=== PATIENT | female | born 1955 | race Caucasian/White ===

== ENCOUNTER 2016-05-16 07:10 | Emergency (ER) | payer OTHER, SELFPAY ==
[2016-05-16] MEDS ORDERED: Sodium Chloride 0.9% 100 ML BAG ONE (07:37)
[2016-05-16] MEDS ORDERED: Sodium Chloride 0.9% 1,000 ML BAG ONE (07:37)
[2016-05-16] MEDS ORDERED: Ketorolac Tromethamine 30 MG/ML VIAL ONE (07:43)
[2016-05-16] MEDS ORDERED: Ondansetron HCl/PF 4 MG/2 ML Vial ONE (07:43)
--- NOTE | 2016-05-16 07:53 | RAD ---
CHEST 1 VIEW: HISTORY: Chest and abdomen pain. COMPARISON: 05/16/15. FINDINGS: Parenchymal opacity at the right lateral lung base has progressed with slight rightward shift of the mediastinum. Cardiac silhouette is otherwise within normal limits. Pulmonary vasculature is upper limits of normal. IMPRESSION: Worsening atelectasis at the right lung base. Cause is not evident. Please consider CT chest for b quique characterization. POS: DEEPA
[2016-05-16 08:03] LABS: ALT (SGPT) 13 U/L (0-55); AST (SGOT) 13 U/L (5-34); Albumin 4.1 g/dL (3.5-5.0); Alkaline Phosphatase 119 U/L (40-150); Amylase 36 U/L (25-125); Anion Gap 19 mmol/L (10-20); BUN (Urea Nitrogen) 11 mg/dL (9.8-20.1); Bilirubin, Total 0.6 mg/dL (0.2-1.2); Calc. Creatinine Clearance 0 mL/min (70-130); Calcium 9.6 mg/dL (7.8-10.44); Carbon Dioxide 21 mmol/L (22-29); Chloride 102 mmol/L (98-107); Estimated GFR-MDRD 74; Globulin 3.2 g/dL (2.4-3.5); Glucose 108 mg/dL (70-105); Lipase 12 U/L (8-78); Potassium 3.8 mmol/L (3.5-5.1); Protein, Total 7.3 g/dL (6.0-8.3); Sodium 138 mmol/L (136-145)
[2016-05-16 08:08] LABS: Band 5 % (5-11); Hemoglobin 12.8 g/dL (12.0-16.0); Lymphocytes 12 % (21-51); MDiff Complete? YES; Manual Diff?? YES; Mean Corpuscular Hemoglobin 27.4 pg (27.0-31.0); Mean Platelet Volume 7.9 fL (7.4-10.4); Monocytes 6 % (0-10); Neutrophil 77 % (42-75); Platelet Count 506 thou/uL (130-400); RBC Distribution Width 13.9 % (11.5-14.5); Red Blood Cell (RBC) Count 4.67 mill/uL (4.20-5.40); White Blood Cell (WBC) Count 17.6 thou/uL (4.8-10.8)
[2016-05-16 08:09] LABS: PLT Morphology Comment Appears Increased; RBC Morphology Normal
[2016-05-16 08:13] LABS: Blood, Urine Moderate (Negative); Clarity Clear (Clear); Glucose, Urine (Dipstick) Negative (Negative); Leukocyte Negative (Negative); Nitrite Negative (Negative); Protein, Urine (Dipstick) 30 mg/dL (Neg-Trace)
[2016-05-16 08:15] LABS: Bilirubin Small (Negative); Icto Negative (Negative); Specific Gravity, Urine 1.024 (1.002-1.036)
[2016-05-16 08:16] LABS: Bacteria/HPF Rare-Few HPF (None Seen); WBC/HPF 0-3 HPF (0-3)
--- NOTE | 2016-05-16 08:32 | ULT ---
RIGHT UPPER QUADRANT SONOGRAM: HISTORY: Right upper quadrant pain. FINDINGS: The patient is reportedly tender over the gallbladder fossa at the time of the exam with multiple sh adowing stones. The gallbladder is somewhat distended measuring up to 8.8 cm. There is no gallblad erickson wall thickening evident. Common duct is 0.3 cm diameter. Liver is unremarkable without focal m ass or intrahepatic biliary dilatation. No free fluid is apparent. IMPRESSION: Cholelithiasis. Distention of the gallbladder and positive sonographic Grider's sign are signs of a cute cholecystitis. Clinical correlation regarding other signs and symptoms of acute cholecystitis of acute cholecystitis is required. POS: DEEPA
[2016-05-16] MEDS ORDERED: Piperacillin/Tazobactam 4.5 GM VIAL ONE (08:44)
--- NOTE | 2016-05-16 08:59 | ERRECORD ---
[facility] EMERGENCY RECORD HPI ABDOMINAL PAIN (07:41 LLDO) CHIEF COMPLAINTS: Patient presents for evaluation of abdominal pain, Patient presents for evaluation of was dx'd as having gall stones about a onth ago. was doing better until 2 days ago and started having severe RUQ pain with rad into right scapula area and now also intyo right upper flank. n/v/d. fever to 101 or more. pain slowly getting worse. HISTORIAN: History provided by patient, History provided by patient's spouse. LOCATION FEMALE: Symptoms are localized. QUALITY: Pain is dull in nature, described as aching, described as BECOMES SHARP WITH MOVEMENT OR PALPATION. SEVERITY: Maximum severity of symptoms severe, Currently symptoms are severe. TIME COURSE: Gradual onset of symptoms, Symptoms are constant, Symptoms are worsening. ASSOCIATED WITH FEMALE: Associated with fever, Associated with flank pain, Associated with loss of appetite, Associated with nausea, Associated with vomiting. MODIFYING FACTORS FEMALE: tubes tied. RELIEVED BY: Patient's condition relieved by nothing. EXACERBATED BY: Patient's condition exacerbated by deep breath, Patient's condition exacerbated by movement, Patient's condition exacerbated by walking. RISK FACTORS FEMALE: No ectopic risk factors present, Abdominal aortic aneurysm risk factors, include age over 40 years, Coronary artery disease risk factors, include smoking. ROS CONSTITUTIONAL: Historian reports fatigue, reports fever, reports weight loss. (07:47 LLDO) EYES: Negative eye review of systems, Historian denies eye pain, denies eye redness, denies eye discharge. (07:53 LLDO) ENT: SEE HPI...DRY MOUTH. (07:47 LLDO) CARDIOVASCULAR: Negative cardiovascular review of systems, Historian denies chest pain, no radiation, Historian denies diaphoresis, denies syncope. (07:53 LLDO) RESPIRATORY: Negative respiratory review of systems, Historian denies cough, denies shortness of breath, denies sputum. (07:53 LLDO) GI: Historian reports abdominal pain, reports anorexia, reports appetite changes, reports diarrhea, denies hematemesis, denies hematochezia, denies jaundice, denies melena, reports nausea, reports stool changes, reports vomiting. (07:47 LLDO) GENITOURINARY FEMALE: Negative genitourinary review of systems, Historian denies dysuria, denies frequency, denies urgency. (07:53 LLDO) MUSCULOSKELETAL: Historian reports back pain, denies deformity, denies fall, denies injury, reports myalgias. (07:47 LLDO) &a-1R&a+25V*p+0X*[id number]*c202B*c15G*c2P*p-0X&a-25V&a+1R Name: Kristie Moreno : 1955 F60 MedRec: [id number] AcctNum: [id number] Prepared: Rian May 16, 2016 10:17 by Interface Page 1 of 4 pMD [facility] EMERGENCY RECORD SKIN: Negative skin review of systems, Historian denies cellulitis, denies rash, denies skin changes, denies skin lesions. (07:53 LLDO) NEUROLOGIC: Negative neurologic review of systems, Historian denies confusion, denies dizziness, denies focal weakness, denies mental status changes. (07:53 LLDO) HEMO/LYMPHATIC: Normal hematologic/lymphatic system review, Historian denies abnormal blood clotting, denies gum bleeding, denies petechiae. (07:53 LLDO) ALLERGIC/IMMUNOLOGIC: Normal allergy/immunologic system review, Historian denies eczema, denies environmental allergies, denies food allergies. (07:53 LLDO) PSYCHIATRIC: Negative psychiatric review of systems, Historian denies alcohol abuse, denies anxiety, denies depression, denies drug abuse, denies hallucinations. (07:53 LLDO) NOTES: All systems reviewed, negative except as described above. (07:47 LLDO) PAST MEDICAL HISTORY MEDICAL HISTORY: reflux, asthma, emphysema. (08:06 SCHI) FEMALE SURGICAL HISTORY: left wrist. (08:06 SCHI) PSYCHIATRIC HISTORY: No previous psychiatric history. (08:06 SCHI) SOCIAL HISTORY: Lives at home, with family, Patient denies alcohol use, Patient denies drug use, Patient is a former tobacco user, smoked cigarettes, Patient quit smoking less than 10 years ago. (08:06 SCHI) FAMILY HISTORY: Family istory is not significant. (08:06 SCHI) NOTES: Nursing records reviewed, Agree with nursing records, Old chart reviewed, Medication list reviewed. (07:52 LLDO) KNOWN ALLERGIES No Known Allergies CURRENT MEDICATIONS atorvastatin: TABLET : Strength - 20 mg : ORAL Patient Dose: once a day. (08:08 SCHI) sertraline: TABLET : Strength - 100 mg : ORAL Patient Dose: once a day. (08:09 SCHI) Advair Diskus: BLISTER, WITH INHALATION DEVICE : Strength - 500 mcg-50 mcg/Dose : INHALATION Patient Dose: once a day. (08:09 SCHI) Ventolin HFA: HFA AEROSOL WITH ADAPTER (GRAM) : Strength - 90 mcg : INHALATION Patient Dose: every 4 hours prn. (08:10 SCHI) &a-1R&a+25V*p+0X*[id number]*c202B*c15G*c2P*p-0X&a-25V&a+1R Name: Kristie Moreno : 1955 F60 MedRec: [id number] AcctNum: [id number] Prepared: [facility] May 16, 2016 10:17 by Interface Page 2 of 4 pMD [facility] EMERGENCY RECORD VITAL SIGNS VITAL SIGNS: BP: 126/69, Pulse: 106, Resp: 22, Temp: 100.5 (Tympanic), Pain: 10, O2 sat: 93 on Room Air, Time: 05/16/2016 07:20. (07:20 SCHI) BP: 96/61, Pulse: 79, Resp: 20, Pain: 2, O2 sat: 90 on Room Air, Time: 05/16/2016 08:45. (08:45 SCHI) BP: 118/64, Pulse: 96, Resp: 20, Temp: 99.7 (Tympanic), Pain: 2, O2 sat: 95 on 2L Oxygen, Time: 05/16/2016 09:07. (09:07 SCHI) PHYSICAL EXAM CONSTITUTIONAL: Vital Signs Reviewed, Patient febrile, temperature of 100.5, Pulse, tachycardic, 106, Blood pressure normal, Respiratory rate normal, Patient appears non toxic, Patient appears, in moderate pain distress, SEVERE WITH PALPATION OR MOVEMENT, Patient alert and oriented to person, place and time, Nursing notes reviewed. (07:50 LLDO) HEAD: Head exam normal, Head exam included findings of head atraumatic, normocephalic. (07:53 LLDO) EYES: Eye exam normal, Eye exam included findings of eyelids normal to inspection, Pupils equally round and reactive to light, Extraocular muscles intact. (07:53 LLDO) ENT: Ear exam normal, Nose exam normal, Pharynx exam normal, Uvula exam normal, Tonsil exam normal, Mouth exam included findings of, mucous membranes dry, Sinus exam included findings of frontal sinuses normal, maxillary sinuses normal. (07:50 LLDO) NECK: Neck exam included findings of normal range of motion, Trachea midline, Thyroid normal, no meningeal signs, Cervical adenopathy. (07:50 LLDO) RESPIRATORY CHEST: Respiratory and chest exam normal, Respiratory exam included findings of, Chest exam included findings of chest movement symmetrical, Chest expansion equal. (07:53 LLDO) CARDIOVASCULAR: Cardiovascular assessment normal, Cardiovascular exam included findings of heart rate regular rate and rhythm, Heart sounds normal. (07:53 LLDO) ABDOMEN FEMALE: Abdominal exam included findings of abdomen tender, to the right upper quadrant, severe intensity, Bowel sounds, hyperactive, Spleen normal, no distension, no mass, no pulsatile masses, Peritoneal signs present, guarding present, RUQ with pos dixon's sign. (07:50 LLDO) BACK: Back exam included findings of normal inspection, Range of motion, limited by pain, Tenderness, paraspinal to the right upper back, paraspinal to the right mid back. (07:50 LLDO) UPPER EXTREMITY: Upper extremity exam normal, Upper extremity exam included findings of inspection normal, Range of motion normal. (07:53 LLDO) &a-1R&a+25V*p+0X*[id number]*c202B*c15G*c2P*p-0X&a-25V&a+1R Name: Kristie Moreno Mary : 1955 F60 MedRec: [id number] AcctNum: [id number] Prepared: [facility] May 16, 2016 10:17 by Interface Page 3 of 4 pMD [facility] EMERGENCY RECORD LOWER EXTREMITY: Lower extremity exam normal, Lower extremity exam included findings of inspection normal, Range of motion normal. (07:53 LLDO) NEURO: Neuro exam normal, Neuro exam findings include patient oriented to person, place and time, Speech normal, Roann coma scale 15. (07:53 LLDO) SKIN: Skin exam normal, Skin exam included findings of skin warm, dry, and normal in color, no rash. (07:53 LLDO) PSYCHIATRIC: Psychiatric exam normal, Psychiatric exam included findings of patient oriented to person place and time, Normal affect. (07:53 LLDO) MEDICATION ADMINISTRATION SUMMARY Drug Name: Flagyl RTU intravenous piggyback, Dose Ordered: 500 mg, Route: IV Piggy Back, Status: Given, Time: 09:50 05/16/2016, Drug Name: Zosyn, Dose Ordered: 4.5 gran(s), Route: IV Piggy Back, Status: Given, Time: 08:50 05/16/2016, Drug Name: *sodium chloride 0.9 % intravenous, Dose Ordered: 1 L, Route: IV Fluid Infusion, Status: Given, Time: 08:33 05/16/2016, Drug Name: Duramorph (PF), Dose Ordered: 4 mg, Route: IV Push, Status: Given, Time: 08:33 05/16/2016, Drug Name: Zofran intravenous, Dose Ordered: 8 mg, Route: IV Push, Status: Given, Time: 07:53 05/16/2016, Drug Name: Toradol injection, Dose Ordered: 30 mg, Route: IV Push, Status: Given, Time: 07:53 05/16/2016, *Additional information available in notes, Detailed record available in Medication Service section. DOCTOR NOTES (08:53 LLDO) TEXT: accepted by dr. Mcpherson for [facility]. PROBLEM LIST No recorded problems DIAGNOSIS (08:54 LLDO) FINAL: PRIMARY: Gallstone with acute cholecystitis. PRESCRIPTION No recorded prescriptions DISPOSITION PATIENT: Disposition Type: Discharge, Disposition: *Discharge Home. (08:54 LLDO) Disposition Type: Transfer, Disposition: Transfer to [facility]. (08:57 SCHI) Patient left the department. (10:12 SCHI) Negron: LLDO=MD Caesar, Timbo SCHI=ALDA Soto, Brian &a-1R&a+25V*p+0X*[id number]*c202B*c15G*c2P*p-0X&a-25V&a+1R Name: Kristie Moreno Mary : 1955 F60 MedRec: [id number] AcctNum: [id number] Prepared: [facility] May 16, 2016 10:17 by Interface Page 4 of 4 pMD MTDD
--- NOTE | 2016-05-16 09:04 | PICIS ---
[facility] EMERGENCY RECORD TRIAGE (FriMay 16, 2016 07:21 SCHI) TRIAGE NOTES: RT UPPER QUAD PAIN SINCE . (FriMay 16, 2016 07:21 SCHI) PATIENT: NAME: Kristie Moreno, AGE: 60, GENDER: female, : Fri1955, TIME OF GREET: FriMay 16, 2016 07:10, PREFERRED LANGUAGE: American, ETHNICITY: Not or , FALL RISK: NO, ECODE BILLING MAP: [facility], SSN: [id number], Zip Code: [address], KG WEIGHT: 74.39, PHONE: , , , PERSON ID: [id number], PCP: DR VOSS. (FriMay 16, 2016 07:21 SCHI) COMPLAINT: RIGHT FLANK PAIN. (FriMay 16, 2016 07:21 SCHI) ADMISSION: URGENCY: 3 Urgent, ADMISSION SOURCE: Home, TRANSPORT: Walk-in, BED: ED -05. (FriMay 16, 2016 07:21 SCHI) ASSESSMENT: Assessment: ALERT AND ORIENTED X 4, SKIN WARM AND DRY RESP EVEN AND UNLABORED,, Symptoms began FRIDAY AFTERNOON. (08:06 SCHI) PAIN: Patient complains of pain described as, on a scale 0-10 patient rates pain as 10, Location RT UPPER SIDE, Pain is constant. (08:06 SCHI) TRIAGE SCREENING: Patient denies suicidal ideation, Patient denies presence of domestic violence. (08:06 SCHI) PROVIDERS: TRIAGE NURSE: Brian Soto RN. (FriMay 16, 2016 07:21 SCHI) VITAL SIGNS: BP 126/69, Pulse 106, Resp 22, Temp 100.5, (Tympanic), Pain 10, O2 Sat 93, on Room Air, Time 05/16/2016 07:20. (07:20 SCHI) PREVIOUS VISIT ALLERGIES: No Known Allergies. (FriMay 16, 2016 07:21 SCHI) No Known Allergies. (08:06 SCHI) KNOWN ALLERGIES No Known Allergies CURRENT MEDICATIONS atorvastatin: TABLET : Strength - 20 mg : ORAL Patient Dose: once a day. (08:08 SCHI) sertraline: TABLET : Strength - 100 mg : ORAL Patient Dose: once a day. (08:09 SCHI) Advair Diskus: BLISTER, WITH INHALATION DEVICE : Strength - 500 mcg-50 mcg/Dose : INHALATION Patient Dose: once a day. (08:09 SCHI) Ventolin HFA: HFA AEROSOL WITH ADAPTER (GRAM) : Strength - 90 mcg : INHALATION Patient Dose: every 4 hours prn. (08:10 SCHI) VITAL SIGNS VITAL SIGNS: BP: 126/69, Pulse: 106, Resp: 22, Temp: 100.5 &a-1R&a+25V*p+0X*[id number]*c202B*c15G*c2P*p-0X&a-25V&a+1R Name: Kristie Moreno : 1955 F60 MedRec: [id number] AcctNum: [id number] Prepared: [facility] May 16, 2016 10:23 by Interface Page 1 of 12 pMD [facility] EMERGENCY RECORD (Tympanic), Pain: 10, O2 sat: 93 on Room Air, Time: 05/16/2016 07:20. (07:20 SCHI) BP: 96/61, Pulse: 79, Resp: 20, Pain: 2, O2 sat: 90 on Room Air, Time: 05/16/2016 08:45. (08:45 SCHI) BP: 118/64, Pulse: 96, Resp: 20, Temp: 99.7 (Tympanic), Pain: 2, O2 sat: 95 on 2L Oxygen, Time: 05/16/2016 09:07. (09:07 SCHI) NURSING ASSESSMENT: ABDOMEN CONSTITUTIONAL: Patient arrives ambulatory, Gait steady, History obtained from patient, Patient appears, uncomfortable, Patient cooperative, Patient alert, Oriented to person, place and time, Skin warm, Skin dry, Skin, pale in color, Mucous membranes pink, Mucous membranes moist, Patient is well-groomed, Patient complains of right side pain since friday, pt reports that she has been told that she has gallstones, pt has nausea, some vomiting and some diarrhea. (07:30 SCHI) PAIN: cramping pain, to the right upper quadrant, on a scale 0-10 patient rates pain as 2. (09:15 SCHI) ABDOMEN: Abdomen assessment findings include abdomen symmetrical, Abdomen soft. (07:30 SCHI) GENITOURINARY FEMALE: Notes: no symptoms stated. (07:30 SCHI) NOTES: Patient tolerated procedure well. (07:30 SCHI) SAFETY: Side rails up, Cart/Stretcher in lowest position, Family at bedside, Hospital ID band on. (07:30 SCHI) NURSING PLAN OF CARE: Pain:, Patient is able to participate in development and implementation of nursing plan of care for pain. (07:30 SCHI) NURSING PROCEDURE: IV (07:50 SCHI) PATIENT IDENITIFIER: Patient actively involved in identification process, Patient's identity verified by patient stating name, Patient's identity verified by patient stating date, Patient's identity verified by hospital ID bracelet. IV SITE 1: IV therapy indicated for hydration, IV therapy indicated for medication administration, IV established, to the left wrist, using a 20 gauge catheter, in one attempt, IV site prepped with chloraprep, Saline lock established, Flushed with normal saline (mls): 10, Labs drawn at time of placement, labeled in the presence of the patient and sent to lab. NURSING PROCEDURE: OXYGEN THERAPY (09:11 SCHI) OXYGEN THERAPY: Oxygen therapy indicated for desaturation, Oxygen saturation 90%, by adult/pediatric oxisensor, single pulse oximetry reading, 2L oxygen given, via nasal cannula applied. NURSING PROCEDURE: TRANSPORT TO TESTS PATIENT IDENTIFIER: Patient actively involved in identification process, Patient's identity verified by patient stating name, &a-1R&a+25V*p+0X*[id number]*c202B*c15G*c2P*p-0X&a-25V&a+1R Name: Kristie Moreno : 1955 F60 MedRec: [id number] AcctNum: [id number] Prepared: Rain May 16, 2016 10:23 by Interface Page 2 of 12 pMD [facility] EMERGENCY RECORD Patient's identity verified by patient stating date, Patient's identity verified by hospital ID bracelet. (07:53 SCHI) TRANSPORT TO TESTS: Transport indicated to facilitate diagnosis, Patient transported to x-ray, via wheelchair, Accompanied by x-ray field support technician. (07:53 SCHI) FOLLOW-UP: After procedure, patient returned to emergency department. (08:03 SCHI) NOTES: Patient tolerated procedure well. (07:53 SCHI) SAFETY: Side rails up, Cart/Stretcher in lowest position, Family at bedside, Call light within reach, Hospital ID band on. (07:53 SCHI) NURSING PROCEDURE: URINE COLLECTION (07:45 SCHI) PATIENT IDENTIFIER: Patient actively involved in identification process, Patient's identity verified by patient stating name, Patient's identity verified by patient stating date, Patient's identity verified by hospital ID bracelet. URINE COLLECTION FEMALE: Urine collected by mid-stream clean catch, urine yellow in color, Specimen labeled in the presence of the patient and sent to lab. SAFETY: Side rails up, Cart/Stretcher in lowest position, Family at bedside, Hospital ID band on. ORDER DETAILS Order Name: Amylase, Status: Active, Time: 07:28 05/16/2016, User: WESTON, - Ordered for: MD Maynard Lloyd, - Entered by: MD Maynard Lloyd - Rain May 16, 2016 07:28, - Quantity: 1, Order Name: CBC with Differential, Status: Active, Time: 07:26 05/16/2016, User: LL, - Ordered for: MD Maynard Lloyd, - Entered by: MD Maynard Lloyd - Rain May 16, 2016 07:26, - Quantity: 1, Order Name: Comprehensive Metabolic Panel, Status: Active, Time: 07:26 05/16/2016, User: LL, - Ordered for: MD Maynard Lloyd, - Entered by: MD Maynard Lloyd - Rain May 16, 2016 07:26, - Quantity: 1, Order Name: Culture, Blood, Status: Active, Time: 08:29 05/16/2016, User: WESTON, - Ordered for: MD Maynard Lloyd, - Entered by: MD Maynard Lloyd - Rain May 16, 2016 08:29, - Quantity: 1, Order Name: Culture, Urine, Status: Active, Time: 07:26 05/16/2016, User: LL, - Ordered for: MD Maynard Lloyd, - Entered by: MD Maynard Lloyd - [facility] May 16, 2016 07:26, - Quantity: 1, &a-1R&a+25V*p+0X*[id number]*c202B*c15G*c2P*p-0X&a-25V&a+1R Name: Kristie Moreno : 1955 F60 MedRec: [id number] AcctNum: [id number] Prepared: FriMay 16, 2016 10:23 by Interface Page 3 of 12 pMD [facility] EMERGENCY RECORD Order Name: Lipase, Status: Active, Time: 07:28 05/16/2016, User: WESTON, - Ordered for: MD Maynard Lloyd, - Entered by: MD Maynard Lloyd - [facility] May 16, 2016 07:28, - Quantity: 1, Order Name: SALINE LOCK, Status: Done, Time: 08:04 05/16/2016, User: SCHI, - Ordered for: MD Maynard Lloyd, - Entered by: MD Maynard Lloyd - [facility] May 16, 2016 07:28, - Quantity: 1, Order Name: Urinalysis with Microscopic, Status: Active, Time: 07:26 05/16/2016, User: LL, - Ordered for: MD Maynard Lloyd, - Entered by: MD Maynard Lloyd - Rain May 16, 2016 07:26, - Quantity: 1, Order Name: US Gallbladder RUQ, Status: Active, Time: 07:36 05/16/2016, User: LL, - Ordered for: MD Maynard Lloyd, - Entered by: MD Maynard Lloyd - [facility] May 16, 2016 07:36, - Quantity: 1, Order Name: XR Chest 1 View Portable, Status: Active, Time: 07:28 05/16/2016, User: LL, - Ordered for: MD Maynard Lloyd, - Entered by: MD Maynard Lloyd - Rain May 16, 2016 07:28, - Quantity: 1. MEDICATION ADMINISTRATION SUMMARY Drug Name: Flagyl RTU intravenous piggyback, Dose Ordered: 500 mg, Route: IV Piggy Back, Status: Given, Time: 09:50 05/16/2016, Drug Name: Zosyn, Dose Ordered: 4.5 gran(s), Route: IV Piggy Back, Status: Given, Time: 08:50 05/16/2016, Drug Name: *sodium chloride 0.9 % intravenous, Dose Ordered: 1 L, Route: IV Fluid Infusion, Status: Given, Time: 08:33 05/16/2016, Drug Name: Duramorph (PF), Dose Ordered: 4 mg, Route: IV Push, Status: Given, Time: 08:33 05/16/2016, Drug Name: Zofran intravenous, Dose Ordered: 8 mg, Route: IV Push, Status: Given, Time: 07:53 05/16/2016, Drug Name: Toradol injection, Dose Ordered: 30 mg, Route: IV Push, Status: Given, Time: 07:53 05/16/2016, *Additional information available in notes, Detailed record available in Medication Service section. MEDICATION SERVICE Duramorph (PF): Order: Duramorph (PF) (morphine sulfate/preservative free) - Dose: 4 mg : IV Push Schedule: Now Ordered by: Timbo Maynard MD Entered by: Timbo Maynard MD [facility] May 16, 2016 07:34 , Acknowledged by: Brian Soto RN [facility] May 16, 2016 08:07 Documented as given by: Brian Soto RN [facility] May 16, 2016 08:33 &a-1R&a+25V*p+0X*e4482P*c202B*c15G*c2P*p-0X&a-25V&a+1R Name: Kristie Moreno : 1955 F60 MedRec: [id number] AcctNum: [id number] Prepared: Rain May 16, 2016 10:23 by Interface Page 4 of 12 pMD [facility] EMERGENCY RECORD Patient, Medication, Dose, Route and Time verified prior to administration. IV SITE #1 IVP, initial medication, Catheter placement confirmed via flush prior to administration, IV site without signs or symptoms of infiltration during medication administration, No swelling during administration, No drainage during administration, IV flushed after administration, Correct patient, time, route, dose and medication confirmed prior to administration, Patient advised of actions and side-effects prior to administration, Allergies confirmed and medications reviewed prior to administration. Flagyl RTU intravenous piggyback: Order: Flagyl RTU intravenous piggyback (metronidazole/sodium chloride) - Dose: 500 mg : IV Piggy Back Schedule: Now Ordered by: Timbo Maynard MD Entered by: Timbo Maynard MD [facility] May 16, 2016 08:30 , Acknowledged by: Brian Soto RN [facility] May 16, 2016 08:34 Documented as given by: Brian Soto RN [facility] May 16, 2016 09:50 Patient, Medication, Dose, Route and Time verified prior to administration. IV SITE #1 IVPB or drip, subsequent infusion, via primary tubing, Catheter placement confirmed via flush prior to administration, IV site without signs or symptoms of infiltration during medication administration, No swelling during administration, No drainage during administration, IV flushed after administration, Correct patient, time, route, dose and medication confirmed prior to administration, Patient advised of actions and side-effects prior to administration, Allergies confirmed and medications reviewed prior to administration. sodium chloride 0.9 % intravenous: Order: sodium chloride 0.9 % intravenous (0.9 % sodium chloride) - Dose: 1 L : IV Fluid Infusion Notes: (Bolus) after bolus, run NS at 150 ml/h Ordered by: Timbo Maynard MD Entered by: Timbo Maynard MD [facility] May 16, 2016 07:35 , Acknowledged by: Brian Soto RN [facility] May 16, 2016 08:07 Documented as given by: Brian Soto RN [facility] May 16, 2016 08:33 Patient, Medication, Dose, Route and Time verified prior to administration. IV SITE #1 IV fluids established for hydration, IV SITE #1 into left wrist, IV SITE #1 1st bag hung, amount 1 Liter hung, IV SITE #1 bolus of 1000 ml established, IV SITE #1 Rate of bolus, wide open, via primary tubing, Catheter placement confirmed via flush prior to administration, IV site without signs or symptoms of infiltration during medication administration, No swelling during administration, No drainage during administration, IV flushed after administration, Correct patient, time, route, dose and medication confirmed prior to administration, Patient advised of actions and side-effects prior to administration, Allergies confirmed and medications reviewed prior to administration. Toradol injection: Order: Toradol injection (ketorolac &a-1R&a+25V*p+0X*c1239Y*c202B*c15G*c2P*p-0X&a-25V&a+1R Name: Kristie Moreno : 1955 F60 MedRec: [id number] AcctNum: [id number] Prepared: Rain May 16, 2016 10:23 by Interface Page 5 of 12 pMD [facility] EMERGENCY RECORD tromethamine) - Dose: 30 mg : IV Push Schedule: Now Ordered by: Timbo Maynard MD Entered by: Timbo Maynard MD [facility] May 16, 2016 07:34 Documented as given by: Brian Soto RN [facility] May 16, 2016 07:53 Patient, Medication, Dose, Route and Time verified prior to administration. IV SITE #1 IVP, subsequent different medication, Slowly, Catheter placement confirmed via flush prior to administration, IV site without signs or symptoms of infiltration during medication administration, No swelling during administration, No drainage during administration, IV flushed after administration, Correct patient, time, route, dose and medication confirmed prior to administration, Patient advised of actions and side-effects prior to administration, Allergies confirmed and medications reviewed prior to administration. Zofran intravenous: Order: Zofran intravenous (ondansetron HCl) - Dose: 8 mg : IV Push Schedule: Now Ordered by: Timbo Maynard MD Entered by: Timbo Maynard MD [facility] May 16, 2016 07:34 Documented as given by: Brian Soto RN [facility] May 16, 2016 07:53 Patient, Medication, Dose, Route and Time verified prior to administration. IV SITE #1 IVP, initial medication, Awake and alert- acceptable, Catheter placement confirmed via flush prior to administration, IV site without signs or symptoms of infiltration during medication administration, No swelling during administration, No drainage during administration, IV flushed after administration, Correct patient, time, route, dose and medication confirmed prior to administration, Patient advised of actions and side-effects prior to administration, Allergies confirmed and medications reviewed prior to administration. Zosyn: Order: Zosyn (piperacillin sodium/tazobactam sodium) - Dose: 4.5 gran(s) : IV Piggy Back Schedule: Now Ordered by: Timbo Maynard MD Entered by: Timbo Maynard MD [facility] May 16, 2016 08:30 , Acknowledged by: Brian Soto RN [facility] May 16, 2016 08:34 Documented as given by: Brian Soto RN [facility] May 16, 2016 08:50 Patient, Medication, Dose, Route and Time verified prior to administration. IV SITE #1 IVPB or drip, initial infusion, via primary tubing. HPI ABDOMINAL PAIN (07:41 LLDO) CHIEF COMPLAINTS: Patient presents for evaluation of abdominal pain, Patient presents for evaluation of was dx'd as having gall stones about a onth ago. was doing better until 2 days ago and started having severe RUQ pain with rad into right scapula area and now also intyo right upper flank. n/v/d. fever to 101 or more. pain slowly getting worse. HISTORIAN: History provided by patient, History provided by patient's spouse. &a-1R&a+25V*p+0X*v1444Q*c202B*c15G*c2P*p-0X&a-25V&a+1R Name: Kristie Moreno : 1955 F60 MedRec: [id number] AcctNum: [id number] Prepared: [facility] May 16, 2016 10:23 by Interface Page 6 of 12 pMD [facility] EMERGENCY RECORD LOCATION FEMALE: Symptoms are localized. QUALITY: Pain is dull in nature, described as aching, described as BECOMES SHARP WITH MOVEMENT OR PALPATION. SEVERITY: Maximum severity of symptoms severe, Currently symptoms are severe. TIME COURSE: Gradual onset of symptoms, Symptoms are constant, Symptoms are worsening. ASSOCIATED WITH FEMALE: Associated with fever, Associated with flank pain, Associated with loss of appetite, Associated with nausea, Associated with vomiting. MODIFYING FACTORS FEMALE: tubes tied. RELIEVED BY: Patient's condition relieved by nothing. EXACERBATED BY: Patient's condition exacerbated by deep breath, Patient's condition exacerbated by movement, Patient's condition exacerbated by walking. RISK FACTORS FEMALE: No ectopic risk factors present, Abdominal aortic aneurysm risk factors, include age over 40 years, Coronary artery disease risk factors, include smoking. ROS CONSTITUTIONAL: Historian reports fatigue, reports fever, reports weight loss. (07:47 LLDO) EYES: Negative eye review of systems, Historian denies eye pain, denies eye redness, denies eye discharge. (07:53 LLDO) ENT: SEE HPI...DRY MOUTH. (07:47 LLDO) CARDIOVASCULAR: Negative cardiovascular review of systems, Historian denies chest pain, no radiation, Historian denies diaphoresis, denies syncope. (07:53 LLDO) RESPIRATORY: Negative respiratory review of systems, Historian denies cough, denies shortness of breath, denies sputum. (07:53 LLDO) GI: Historian reports abdominal pain, reports anorexia, reports appetite changes, reports diarrhea, denies hematemesis, denies hematochezia, denies jaundice, denies melena, reports nausea, reports stool changes, reports vomiting. (07:47 LLDO) GENITOURINARY FEMALE: Negative genitourinary review of systems, Historian denies dysuria, denies frequency, denies urgency. (07:53 LLDO) MUSCULOSKELETAL: Historian reports back pain, denies deformity, denies fall, denies injury, reports myalgias. (07:47 LLDO) SKIN: Negative skin review of systems, Historian denies cellulitis, denies rash, denies skin changes, denies skin lesions. (07:53 LLDO) NEUROLOGIC: Negative neurologic review of systems, Historian denies confusion, denies dizziness, denies focal weakness, denies mental status changes. (07:53 LLDO) HEMO/LYMPHATIC: Normal hematologic/lymphatic system review, Historian denies abnormal blood clotting, denies gum bleeding, denies &a-1R&a+25V*p+0X*j3065U*c202B*c15G*c2P*p-0X&a-25V&a+1R Name: Kristie Moreno : 1955 F60 MedRec: [id number] AcctNum: [id number] Prepared: Rain May 16, 2016 10:23 by Interface Page 7 of 12 pMD [facility] EMERGENCY RECORD petechiae. (07:53 LLDO) ALLERGIC/IMMUNOLOGIC: Normal allergy/immunologic system review, Historian denies eczema, denies environmental allergies, denies food allergies. (07:53 LLDO) PSYCHIATRIC: Negative psychiatric review of systems, Historian denies alcohol abuse, denies anxiety, denies depression, denies drug abuse, denies hallucinations. (07:53 LLDO) NOTES: All systems reviewed, negative except as described above. (07:47 LLDO) PAST MEDICAL HISTORY MEDICAL HISTORY: reflux, asthma, emphysema. (08:06 SCHI) FEMALE SURGICAL HISTORY: left wrist. (08:06 SCHI) PSYCHIATRIC HISTORY: No previous psychiatric history. (08:06 SCHI) SOCIAL HISTORY: Lives at home, with family, Patient denies alcohol use, Patient denies drug use, Patient is a former tobacco user, smoked cigarettes, Patient quit smoking less than 10 years ago. (08:06 SCHI) FAMILY HISTORY: Family istory is not significant. (08:06 SCHI) NOTES: Nursing records reviewed, Agree with nursing records, Old chart reviewed, Medication list reviewed. (07:52 LLDO) PHYSICAL EXAM CONSTITUTIONAL: Vital Signs Reviewed, Patient febrile, temperature of 100.5, Pulse, tachycardic, 106, Blood pressure normal, Respiratory rate normal, Patient appears non toxic, Patient appears, in moderate pain distress, SEVERE WITH PALPATION OR MOVEMENT, Patient alert and oriented to person, place and time, Nursing notes reviewed. (07:50 LLDO) HEAD: Head exam normal, Head exam included findings of head atraumatic, normocephalic. (07:53 LLDO) EYES: Eye exam normal, Eye exam included findings of eyelids normal to inspection, Pupils equally round and reactive to light, Extraocular muscles intact. (07:53 LLDO) ENT: Ear exam normal, Nose exam normal, Pharynx exam normal, Uvula exam normal, Tonsil exam normal, Mouth exam included findings of, mucous membranes dry, Sinus exam included findings of frontal sinuses normal, maxillary sinuses normal. (07:50 LLDO) NECK: Neck exam included findings of normal range of motion, Trachea midline, Thyroid normal, no meningeal signs, Cervical adenopathy. (07:50 LLDO) RESPIRATORY CHEST: Respiratory and chest exam normal, Respiratory exam included findings of, Chest exam included findings of chest movement symmetrical, Chest expansion equal. (07:53 LLDO) CARDIOVASCULAR: Cardiovascular assessment normal, Cardiovascular &a-1R&a+25V*p+0X*c0139Z*c202B*c15G*c2P*p-0X&a-25V&a+1R Name: Kristie Moreno : 1955 F60 MedRec: [id number] AcctNum: [id number] Prepared: Rain May 16, 2016 10:23 by Interface Page 8 of 12 pMD [facility] EMERGENCY RECORD exam included findings of heart rate regular rate and rhythm, Heart sounds normal. (07:53 LLDO) ABDOMEN FEMALE: Abdominal exam included findings of abdomen tender, to the right upper quadrant, severe intensity, Bowel sounds, hyperactive, Spleen normal, no distension, no mass, no pulsatile masses, Peritoneal signs present, guarding present, RUQ with pos dixon's sign. (07:50 LLDO) BACK: Back exam included findings of normal inspection, Range of motion, limited by pain, Tenderness, paraspinal to the right upper back, paraspinal to the right mid back. (07:50 LLDO) UPPER EXTREMITY: Upper extremity exam normal, Upper extremity exam included findings of inspection normal, Range of motion normal. (07:53 LLDO) LOWER EXTREMITY: Lower extremity exam normal, Lower extremity exam included findings of inspection normal, Range of motion normal. (07:53 LLDO) NEURO: Neuro exam normal, Neuro exam findings include patient oriented to person, place and time, Speech normal, Jose coma scale 15. (07:53 LLDO) SKIN: Skin exam normal, Skin exam included findings of skin warm, dry, and normal in color, no rash. (07:53 LLDO) PSYCHIATRIC: Psychiatric exam normal, Psychiatric exam included findings of patient oriented to person place and time, Normal affect. (07:53 LLDO) EVENTS TRANSFER: Triage to Emergency Main ED -05. (07:21 SCHI) Removed from Emergency Main ED -05. (10:12 SCHI) DOCTOR NOTES (08:53 LLDO) TEXT: accepted by dr. Mcpherson for [facility]. PROBLEM LIST No recorded problems DIAGNOSIS (08:54 LLDO) FINAL: PRIMARY: Gallstone with acute cholecystitis. DISPOSITION PATIENT: Disposition Type: Discharge, Disposition: *Discharge Home. (08:54 LLDO) Disposition Type: Transfer, Disposition: Transfer to [facility]. (08:57 SCHI) Patient left the department. (10:12 SCHI) PRESCRIPTION No recorded prescriptions IMAGING (09:41 LWAL) &a-1R&a+25V*p+0X*z4702B*c202B*c15G*c2P*p-0X&a-25V&a+1R Name: Kristie Moreno : 1955 F60 MedRec: [id number] AcctNum: [id number] Prepared: FriMay 16, 2016 10:23 by Interface Page 9 of 12 pMD [facility] EMERGENCY RECORD *MEMORANDUM OF TRANSFER: Image captured from scanner. EMS TRANSPORT ORDERS: Image captured from scanner. CONSENTS: Image captured from scanner. ADMIN (08:54 LLDO) DIGITAL SIGNATURE: MD Maynard Lloyd. RESULTS RADIOLOGY: XR Chest 1 View Portable Observe DT: FriMay 16, 2016 07:29, CXRP CHEST 1 VIEW: HISTORY: Chest and abdomen pain. COMPARISON: 05/16/15. FINDINGS: Parenchymal opacity at the right lateral lung base has progressed with slight rightward shift of the mediastinum. Cardiac silhouette is otherwise within normal limits. Pulmonary vasculature is upper limits of normal. IMPRESSION: Worsening atelectasis at the right lung base. Cause is not evident. Please consider CT chest for b quique characterization. POS: [facility] . (08:05 SCHI) US Gallbladder RUQ Observe DT: FriMay 16, 2016 07:38, GB RIGHT UPPER QUADRANT SONOGRAM: HISTORY: Right upper quadrant pain. FINDINGS: The patient is reportedly tender over the gallbladder fossa at the time of the exam with multiple sh adowing stones. The gallbladder is somewhat distended measuring up to 8.8 cm. There is no gallblad erickson wall thickening evident. Common duct is 0.3 cm diameter. Liver is unremarkable without focal m ass or intrahepatic biliary dilatation. No free fluid is apparent. IMPRESSION: &a-1R&a+25V*p+0X*c3092B*c202B*c15G*c2P*p-0X&a-25V&a+1R Name: Kristie Moreno : 1955 F60 MedRec: [id number] AcctNum: [id number] Prepared: FriMay 16, 2016 10:23 by Interface Page 10 of 12 pMD [facility] EMERGENCY RECORD Cholelithiasis. Distention of the gallbladder and positive sonographic [place] sign are signs of a cute cholecystitis. Clinical correlation regarding other signs and symptoms of acute cholecystitis of acute cholecystitis is required. POS: [facility] . (09:01 SCHI) LABORATORY: Lipase Collection DT: FriMay 16, 2016 07:45, Lipase 12 U/L, Range (8-78). (08:05 SCHI) Amylase Collection DT: FriMay 16, 2016 07:45, Amylase 36 U/L, Range (25-125). (08:05 SCHI) Comprehensive Metabolic Panel Collection DT: FriMay 16, 2016 07:45, Sodium 138 mmol/L, Range (136-145), Potassium 3.8 mmol/L, Range (3.5-5.1), Chloride 102 mmol/L, Range (98-107), *Carbon Dioxide 21 - L mmol/L, Range (22-29), Anion Gap 19 mmol/L, Range (10-20), BUN (Urea Nitrogen) 11 mg/dL, Range (9.8-20.1), Creatinine 0.79 mg/dL, Range (0.6-1.1), Estimated GFR-MDRD 74 , Reference Range for Estimated GFR: Greater than 90, mL/min/1.73 m2 NOTE: The MDRD equation has not been validated for use, with the elderly (over 70 years of age), women, patients with, serious comorbid condition or persons with extremes of body size, muscle, mass, or nutritional status. , *Glucose 108 - H mg/dL, Range (70-105), Calcium 9.6 mg/dL, Range (7.8-10.44), Bilirubin, Total 0.6 mg/dL, Range (0.2-1.2), Protein, Total 7.3 g/dL, Range (6.0-8.3), NOTE: Plasma values are generally 0.3 to 0.5 g/dL higher than serum values, due to the presence of fibrinogen. , Albumin 4.1 g/dL, Range (3.5-5.0), Globulin 3.2 g/dL, Range (2.4-3.5), Alb/Glob Ratio 1.3 g/dL, Range (1.2-2.2), Alkaline Phosphatase 119 U/L, Range (40-150), AST (SGOT) 13 U/L, Range (5-34), ALT (SGPT) 13 U/L, Range (0-55). (08:05 SCHI) CBC with Differential Collection DT: FriMay 16, 2016 07:45, *White Blood Cell (WBC) Count 17.6 - H thou/uL, Range (4.8-10.8), Red Blood Cell (RBC) Count 4.67 mill/uL, Range (4.20-5.40), Hemoglobin 12.8 g/dL, Range (12.0-16.0), Hematocrit 38.8 %, Range (36.0-47.0), Mean Corpuscular Volume 83.0 fL, Range (81.0-99.0), Mean Corpuscular Hemoglobin 27.4 pg, Range (27.0-31.0), Mean Corpuscular HGB CONC 33.0 g/dL, Range (32.0-36.0), RBC Distribution Width 13.9 %, Range (11.5-14.5), &a-1R&a+25V*p+0X*w8006I*c202B*c15G*c2P*p-0X&a-25V&a+1R Name: Kristie Moreno : 1955 F60 MedRec: [id number] AcctNum: [id number] Prepared: FriMay 16, 2016 10:23 by Interface Page 11 of 12 pMD [facility] EMERGENCY RECORD *Platelet Count 506 - H thou/uL, Range (130-400), Mean Platelet Volume 7.9 fL, Range (7.4-10.4), *Neutrophil 77 - H %, Range (42-75), Band 5 %, Range (5-11), *Lymphocytes 12 - L %, Range (21-51), Monocytes 6 %, Range (0-10), *PLT Morphology Comment Appears Increased - , * H , RBC Morphology Normal . (08:11 SCHI) Urinalysis with Microscopic Collection DT: FriMay 16, 2016 08:13, Color Yellow , Range (Yellow), Clarity Clear , Range (Clear), Specific Hodges, Urine 1.024 , Range (1.002-1.036), pH, Urine 6.0 , Range (5.0-9.0), Leukocyte Negative , Range (Negative), Nitrite Negative , Range (Negative), *Protein, Urine (Dipstick) 30 - H mg/dL, Range (Neg-Trace), Glucose, Urine (Dipstick) Negative mg/dL, Range (Negative), Ketone, Urine Negative mg/dL, Range (Negative), Urobilinogen 1.0 mg/dL, Range (0.2-1.0), *Bilirubin Small - H , Range (Negative), CAUTION Urine, Bilirubin has a high incidence of false positive results due to urine color, interference. Interpret results in conjunction with other clinical, findings. , *Blood, Urine Moderate - H , Range (Negative), *RBC/HPF 11-20 - H HPF, Range (0-3), WBC/HPF 0-3 HPF, Range (0-3), *Squamous Epithelial 4-6 - H HPF, Range (0-3), Bacteria/HPF Rare-Few HPF, Range (None Seen). (09:01 OLVIN) Negron: WESTON=MD Caesar, Timbo RIVERA=ALDA Miranda, Chante BAH=ALDA Soto, [facility] &a-1R&a+25V*p+0X*[id number]*c202B*c15G*c2P*p-0X&a-25V&a+1R Name: Kristie Moreno Mary : 1955 F60 MedRec: [id number] AcctNum: [id number] Prepared: Rain May 16, 2016 10:23 by Interface Page 12 of 12 pMD MTDD
[2016-05-16] MEDS ORDERED: metroNIDAZOLE 500 MG/100 ML BAG ONE (09:47)
== END 2016-05-16 10:03 | disposition short-term general hospital (02) ==
LOC: MADERS 07:10
DX: K80.00 Calculus of gallbladder with acute cholecystitis without obstruction (principal); K21.9 Gastro-esophageal reflux disease without esophagitis; J43.9 Emphysema, unspecified; J45.909 Unspecified asthma, uncomplicated
CPT/HCPCS: 71010; 76705; 80053; 81001; 82150; 83690; 85025; 87040; 87086; 96365; 96367; 96375; J1885; J2270; J2405; J2543; J7050

== ENCOUNTER 2016-06-11 07:17 | Emergency (ER) | payer OTHER, SELFPAY ==
[2016-06-11] MEDS ORDERED: Naproxen 500 MG TAB ONE (07:55)
--- NOTE | 2016-06-11 08:56 | ERRECORD ---
[facility] EMERGENCY RECORD HPI CHEST PAIN (07:56 LLDO) CHIEF COMPLAINT: Patient presents for evaluation of chest pain, ongoing, Denies automated implantable cardioverter-defibrillator event, Patient presents for evaluation of yesterday morning had briefcase under left arm, missed a step and fell backward onto briefcase. woke up this morning with severe pain in left lat chest wall with deep breathing, palpation or any movement. HISTORIAN: History provided by patient. LOCATION: Symptoms are localized, No radiation of pain, Pain has not moved in location over time. QUALITY: Pain is dull in nature, described as aching, described as BECOMES SHARP WITH MOVEMENT OR PALPATION. SEVERITY: Maximum severity of symptoms severe, Currently symptoms are severe. TIME COURSE: Sudden onset of symptoms, Symptoms are worsening, are constant. ASSOCIATED WITH: has ccough from resolving bronchitis. has finished z-joey. EXACERBATED BY: Patient's condition exacerbated by cough, Patient's condition exacerbated by deep breaths, Patient's condition exacerbated by exercise, Patient's condition exacerbated by movement, Patient's condition exacerbated by palpation of chest. RELIEVED BY: Patient's condition relieved by remaining still. RISK FACTORS: No coronary artery disease risk factors, No thoracic aortic dissection risk factors, No pulmonary embolism risk factors. HEART SCORE: Total 0. WELLS CRITERIA FOR PE: Total 0. ROS CONSTITUTIONAL: Negative constitutional review of systems. (08:00 LLDO) EYES: Negative eye review of systems, Historian denies eye pain, denies eye redness, denies eye discharge. (08:03 LLDO) ENT: Negative ears, nose, throat review of systems, Historian denies epistaxis, denies rhinorrhea, denies sinus pain, denies sore throat. (08:03 LLDO) CARDIOVASCULAR: Historian reports dyspnea on exertion. (08:00 LLDO) RESPIRATORY: Historian reports cough. (08:00 LLDO) MUSCULOSKELETAL: Historian reports fall, reports injury, reports myalgias. ONLY IN HPI. (08:00 LLDO) SKIN: Negative skin review of systems, Historian denies cellulitis, denies rash, denies skin changes, denies skin lesions. (08:03 LLDO) NEUROLOGIC: Negative neurologic review of systems, Historian &a-1R&a+25V*p+0X*m2392O*c202B*c15G*c2P*p-0X&a-25V&a+1R Name: Kristie Moreno : 1955 F60 MedRec: [id number] AcctNum: [id number] Prepared: Saroj Jun 11, 2016 09:19 by Interface Page 1 of 4 pMD [facility] EMERGENCY RECORD denies confusion, denies dizziness, denies focal weakness, denies mental status changes. (08:03 LLDO) HEMO/LYMPHATIC: Normal hematologic/lymphatic system review, Historian denies abnormal blood clotting, denies gum bleeding, denies petechiae. (08:03 LLDO) ALLERGIC/IMMUNOLOGIC: Normal allergy/immunologic system review, Historian denies eczema, denies environmental allergies, denies food allergies. (08:03 LLDO) PSYCHIATRIC: Negative psychiatric review of systems, Historian denies alcohol abuse, denies anxiety, denies depression, denies drug abuse, denies hallucinations. (08:03 LLDO) NOTES: All systems reviewed, negative except as described above. (08:00 LLDO) PAST MEDICAL HISTORY MEDICAL HISTORY: reflux, asthma, emphysema, gall stones. (07:25 SFRE) FEMALE SURGICAL HISTORY: Surgical history of cholecystectomy, Date of surgery 05/16/16, left wrist. (07:25 SFRE) PSYCHIATRIC HISTORY: anxiety. (07:25 SFRE) SOCIAL HISTORY: Lives at home, with family, Patient denies alcohol use, Patient denies drug use, Patient is a former tobacco user, smoked cigarettes, Patient quit smoking less than 10 years ago. (07:25 SFRE) FAMILY HISTORY: Family istory is not significant. (07:25 SFRE) NOTES: Nursing records reviewed, Agree with nursing records, Medication list reviewed. (08:02 LLDO) KNOWN ALLERGIES No Known Allergies (Unconfirmed) No Known Drug Allergies CURRENT MEDICATIONS (07:25 SFRE) atorvastatin: TABLET : Strength - 20 mg : ORAL Patient Dose: once a day. sertraline: TABLET : Strength - 100 mg : ORAL Patient Dose: once a day. Advair Diskus: BLISTER, WITH INHALATION DEVICE : Strength - 500 mcg-50 mcg/Dose : INHALATION Patient Dose: once a day. Ventolin HFA: HFA AEROSOL WITH ADAPTER (GRAM) : Strength - 90 mcg : INHALATION Patient Dose: every 4 hours prn. VITAL SIGNS (07:23 SFRE) &a-1R&a+25V*p+0X*k4410Q*c202B*c15G*c2P*p-0X&a-25V&a+1R Name: Kristie Moreno : 1955 F60 MedRec: [id number] AcctNum: [id number] Prepared: FriJun 11, 2016 09:19 by Interface Page 2 of 4 pMD [facility] EMERGENCY RECORD VITAL SIGNS: BP: 109/79, Pulse: 101, Resp: 18, Temp: 98.3 (Tympanic), Pain: 10 (Sharp), O2 sat: 95 on Room Air, Time: 06/11/2016 07:23. PHYSICAL EXAM CONSTITUTIONAL: Vital Signs Reviewed, Patient afebrile, Pulse normal, Blood pressure normal bilaterally, Respiratory rate normal, Patient appears non toxic, Patient appears, in moderate pain distress, BUT SEVERE WITH MOVEMENT OR PALPATION, Patient alert and oriented to person, place and time, Nursing notes reviewed. (08:01 LLDO) HEAD: Head exam normal, Head exam included findings of head atraumatic, normocephalic. (08:03 LLDO) EYES: Eye exam normal, Eye exam included findings of eyelids normal to inspection, Pupils equally round and reactive to light, Extraocular muscles intact. (08:03 LLDO) ENT: ENT exam normal, Ear exam normal, Nose exam normal. (08:03 LLDO) NECK: Neck exam normal, Neck exam included findings of normal range of motion, Trachea midline, no meningeal signs, no tenderness. (08:03 LLDO) RESPIRATORY CHEST: Respiratory exam included findings of no respiratory distress, Breath sounds clear, Chest exam included findings of chest movement symmetrical, Chest expansion equal, Tenderness, severe, to the left lateral chest, Palpation of chest reproduces symptoms. (08:01 LLDO) CARDIOVASCULAR: Heart rate regular rate and rhythm, Heart sounds normal, Patient age considered in evaluation. (08:01 LLDO) BACK: Back exam normal, Back exam included findings of normal inspection, range of motion normal. (08:03 LLDO) UPPER EXTREMITY: Upper extremity exam normal, Upper extremity exam included findings of inspection normal, Range of motion normal. (08:03 LLDO) LOWER EXTREMITY: Lower extremity exam normal, Lower extremity exam included findings of inspection normal, Range of motion normal. (08:03 LLDO) NEURO: Neuro exam normal, Neuro exam findings include patient oriented to person, place and time, Speech normal, Jose coma scale 15. (08:03 LLDO) SKIN: Skin exam normal, Skin exam included findings of skin warm, dry, and normal in color, no rash. (08:03 LLDO) PSYCHIATRIC: Psychiatric exam normal, Psychiatric exam included findings of patient oriented to person place and time, Normal affect. (08:03 LLDO) RADIOLOGYINTERPRETATION (08:36 LLDO) PARK AIDE: Preliminary review of x-rays by, ED Physician, Radiologist, resolving pneumonia in right lung base. the radiologist reported no left rib fx, but I'm pretty &a-1R&a+25V*p+0X*i0432L*c202B*c15G*c2P*p-0X&a-25V&a+1R Name: Kristie Moreno Mary : 1955 F60 MedRec: [id number] AcctNum: [id number] Prepared: jessica Jun 11, 2016 09:19 by Interface Page 3 of 4 pMD [facility] EMERGENCY RECORD sure there is ond, non-displaced fx in post-lat rib 8. MEDICATION ADMINISTRATION SUMMARY Drug Name: Naprosyn, Dose Ordered: 500 mg, Route: Oral, Status: Given, Time: 07:57 06/11/2016, Detailed record available in Medication Service section. PROBLEM LIST No recorded problems DIAGNOSIS (08:40 LLDO) FINAL: PRIMARY: FX 1 RIB UNS SIDE INITIAL CLOS FX, ADDITIONAL: pneumonia, resolving. PRESCRIPTION Tylenol-Codeine #3: TABLET : 300 mg-30 mg : ORAL : Quantity: 1-2 Unit: tab(s) Route: ORAL Schedule: every 4 hours prn Dispense: 30 Unit: tab(s) May substitute. Refills: No Refills . (08:40 LLDO) NOTES: No Refills. (08:40 LLDO) Phenergan DM: SYRUP : : ORAL : Quantity: 1-2 Unit: teaspoon Route: ORAL Schedule: every 4 hours prn Dispense: 180 Unit: mL May substitute. Refills: No Refills . (08:47 LLDO) NOTES: No Refills. (08:47 LLDO) DISPOSITION PATIENT: Disposition Type: Discharge, Disposition: *Discharge Home. (08:40 LLDO) Patient left the department. (09:13 SFRE) Negron: LLDO=MD Caesar, Timbo SFRE=ALDA Mederos, Nereyda &a-1R&a+25V*p+0X*w2551M*c202B*c15G*c2P*p-0X&a-25V&a+1R Name: Kristie Moreno : 1955 F60 MedRec: [id number] AcctNum: [id number] Prepared: Saroj Jun 11, 2016 09:19 by Interface Page 4 of 4 pMD MTDD
--- NOTE | 2016-06-11 09:02 | PICIS ---
[facility] EMERGENCY RECORD TRIAGE (FriJun 11, 2016 07:24 SFRE) TRIAGE NOTES: FELL YESTERDAY HITTING LEFT RIB AREA. C/O OF EXTREME PAIN TODAY. (FriJun 11, 2016 07:24 SFRE) PATIENT: NAME: Kristie Moreno, AGE: 60, GENDER: female, : Fri1955, TIME OF GREET: FriJun 11, 2016 07:18, PREFERRED LANGUAGE: [place], ETHNICITY: Not or , FALL RISK: NO, ECODE BILLING MAP: [facility] ER, SSN: [id number], Zip Code: [address], KG WEIGHT: [phone], PHONE: , , , PERSON ID: [id number], PCP: jaimie. (FriJun 11, 2016 07:24 SFRE) COMPLAINT: FALL,COUGH. (FriJun 11, 2016 07:24 SFRE) ADMISSION: URGENCY: 3 Urgent, ADMISSION SOURCE: Home, TRANSPORT: Walk-in, BED: ED -05. (FriJun 11, 2016 07:24 SFRE) PAIN: Patient complains of pain described as, sharp, on a scale 0-10 patient rates pain as 10, Pain is constant, Onset was 06/10/2016, Aggravating factors:, Aggravating factors include cough, Pain exacerbated by movement, No relieving factors. (07:29 SFRE) SIRS SCORING: Heart Rate 55-109 (0), Temp range 96.8-101.1 (0), respiratory rate 12-24 (0), Mental Status altered: no (0). (07:29 SFRE) TRIAGE SCREENING: Patient denies suicidal ideation, Patient denies presence of domestic violence. (07:29 SFRE) PROVIDERS: TRIAGE NURSE: Nereyda Mederos RN. (FriJun 11, 2016 07:24 SFRE) VITAL SIGNS: BP 109/79, Pulse 101, Resp 18, Temp 98.3, (Tympanic), Pain 10, (Sharp), O2 Sat 95, on Room Air, Time 06/11/2016 07:23. (07:23 SFRE) PREVIOUS VISIT ALLERGIES: No Known Allergies. (Tue Jun 11, 2016 07:24 SFRE) No Known Allergies. (07:25 SFRE) KNOWN ALLERGIES No Known Allergies (Unconfirmed) No Known Drug Allergies CURRENT MEDICATIONS (07:25 SFRE) atorvastatin: TABLET : Strength - 20 mg : ORAL Patient Dose: once a day. sertraline: TABLET : Strength - 100 mg : ORAL Patient Dose: once a day. Advair Diskus: BLISTER, WITH INHALATION DEVICE : Strength - 500 mcg-50 mcg/Dose : INHALATION Patient Dose: once a day. Ventolin HFA: HFA AEROSOL WITH ADAPTER (GRAM) : Strength - 90 mcg : INHALATION Patient Dose: every 4 hours prn. &a-1R&a+25V*p+0X*h4017C*c202B*c15G*c2P*p-0X&a-25V&a+1R Name: Kristie Moreno : 1955 F60 MedRec: [id number] AcctNum: [id number] Prepared: jessica Jun 11, 2016 09:25 by Interface Page 1 of 7 pMD [facility] EMERGENCY RECORD VITAL SIGNS (07:23 SFRE) VITAL SIGNS: BP: 109/79, Pulse: 101, Resp: 18, Temp: 98.3 (Tympanic), Pain: 10 (Sharp), O2 sat: 95 on Room Air, Time: 06/11/2016 07:23. NURSING ASSESSMENT: RESPIRATORY/CHEST TRAUMA (07:33 SFRE) CONSTITUTIONAL: Patient arrives ambulatory, Gait steady, History obtained from patient, Patient appears, in distress due to pain, Patient cooperative, Patient alert, Oriented to person, place and time, Skin warm, Skin dry, Skin normal in color, Mucous membranes pink, Mucous membranes moist, Patient is well-groomed, Patient complains of FALL-PAIN TO LEFT SIDE. MECHANISM OF INJURY: Mechanism of injury fall, from standing, from height less than 3 feet, landing on hard surface, landing on left side, Notes: FELL AND HIT LEFT LATERAL CHEST ON SUITCASE. PAIN: sharp pain, to the left lateral chest, Onset of pain 06/10/2016, on a scale 0-10 patient rates pain as 10, Pain exacerbated by, position change, Pain exacerbated by, bending, Pain exacerbated by, COUGH, Nothing has been tried to alleviate the pain. RESPIRATORY/CHEST: Breath sounds clear, Respiratory assessment findings include respiratory effort easy, Respirations regular, Conversing normally, Neck and chest exam findings include trachea midline, Chest expansion equal, Chest movement symmetrical, Associated with cough, non-productive. THORACIC TRAUMA: Thoracic trauma assessment findings include chest movement symmetrical, Inspection findings include no abrasions, Inspection findings include no ecchymosis, Inspection findings include no lacerations, Inspection findings include no redness, Inspection findings include no swelling, Notes: NO S/S OF TRAUMA NOTED. SAFETY: Side rails up, Cart/Stretcher in lowest position, Call light within reach, Hospital ID band on. NURSING PROCEDURE: DISCHARGE NOTE (08:56 SFRE) DISCHARGE: Patient discharged to home, ambulating without assistance, driving self, unaccompanied, Summary of Care printed/ provided, Patient requested and was provided an electronic copy of Discharge Instructions, Discharge instructions given to patient, Simple or moderate discharge teaching performed, by ALDA CHRIS, F/U WITH PCP. RX DIRECTED. RETURN TO ED NEEDED FOR NEW/CONCERNING OR WORSENING SYMPTOMS., Prescriptions given and instructions on side effects given, Name of prescription(s) given: PHENERGAN SYRUP, T3, Above person(s) verbalized understanding of discharge instructions and follow-up care. NURSING PROCEDURE: NURSE NOTES (08:55 SFRE) &a-1R&a+25V*p+0X*v2700A*c202B*c15G*c2P*p-0X&a-25V&a+1R Name: Kristie Moreno : 1955 F60 MedRec: [id number] AcctNum: [id number] Prepared: Saroj Jun 11, 2016 09:25 by Interface Page 2 of 7 pMD [facility] EMERGENCY RECORD NURSES NOTES: Notes: ALYSSA WRAP AROUND UPPER ABD/LOWER CHEST FOR COMFORT. NURSING PROCEDURE: TRANSPORT TO TESTS (07:58 SFRE) TRANSPORT TO TESTS: Transport indicated to facilitate diagnosis, Patient transported to x-ray, ambulatory, Accompanied by x-ray milieu technician. ORDER DETAILS Order Name: Miscellaneous Nurse Order(s), Status: Done, Time: 08:49 06/11/2016, User: CALVIN, - Ordered for: MD Maynard Lloyd, - Entered by: MD Maynard Lloyd - Saroj Jun 11, 2016 08:48, - Quantity: 1, Order Name: XR Ribs Lt>=2 View W/PA CXR, Status: Active, Time: 07:51 06/11/2016, User: LL, - Ordered for: MD Maynard Lloyd, - Entered by: MD Maynard Lloyd - Tue Jun 11, 2016 07:51, - Quantity: 1. MEDICATION ADMINISTRATION SUMMARY Drug Name: Naprosyn, Dose Ordered: 500 mg, Route: Oral, Status: Given, Time: 07:57 06/11/2016, Detailed record available in Medication Service section. MEDICATION SERVICE (07:57 [facility]) Naprosyn: Order: Naprosyn (naproxen) - Dose: 500 mg : Oral Schedule: Now Ordered by: Timbo Maynard MD Entered by: Timbo Maynard MD jessica Jun 11, 2016 07:52 , Acknowledged by: Nereyda Mederos RN Jun 11, 2016 07:55 Documented as given by: Nereyda Mederos RN Jun 11, 2016 07:57 Patient, Medication, Dose, Route and Time verified prior to administration. Amount given: 500MG, Site: Medication administered P.O., Correct patient, time, route, dose and medication confirmed prior to administration, Patient advised of actions and side-effects prior to administration, Allergies confirmed and medications reviewed prior to administration, Patient in position of comfort, Side rails up, Cart in lowest position. HPI CHEST PAIN (07:56 LLDO) CHIEF COMPLAINT: Patient presents for evaluation of chest pain, ongoing, Denies automated implantable cardioverter-defibrillator event, Patient presents for evaluation of yesterday morning had briefcase under left arm, missed a step and fell backward onto briefcase. woke up this morning with severe &a-1R&a+25V*p+0X*i9733Q*c202B*c15G*c2P*p-0X&a-25V&a+1R Name: Kristie Moreno Mary : 1955 F60 MedRec: [id number] AcctNum: [id number] Prepared: FriJun 11, 2016 09:25 by Interface Page 3 of 7 pMD [facility] EMERGENCY RECORD pain in left lat chest wall with deep breathing, palpation or any movement. HISTORIAN: History provided by patient. LOCATION: Symptoms are localized, No radiation of pain, Pain has not moved in location over time. QUALITY: Pain is dull in nature, described as aching, described as BECOMES SHARP WITH MOVEMENT OR PALPATION. SEVERITY: Maximum severity of symptoms severe, Currently symptoms are severe. TIME COURSE: Sudden onset of symptoms, Symptoms are worsening, are constant. ASSOCIATED WITH: has ccough from resolving bronchitis. has finished z-joey. EXACERBATED BY: Patient's condition exacerbated by cough, Patient's condition exacerbated by deep breaths, Patient's condition exacerbated by exercise, Patient's condition exacerbated by movement, Patient's condition exacerbated by palpation of chest. RELIEVED BY: Patient's condition relieved by remaining still. RISK FACTORS: No coronary artery disease risk factors, No thoracic aortic dissection risk factors, No pulmonary embolism risk factors. HEART SCORE: Total 0. WELLS CRITERIA FOR PE: Total 0. ROS CONSTITUTIONAL: Negative constitutional review of systems. (08:00 LLDO) EYES: Negative eye review of systems, Historian denies eye pain, denies eye redness, denies eye discharge. (08:03 LLDO) ENT: Negative ears, nose, throat review of systems, Historian denies epistaxis, denies rhinorrhea, denies sinus pain, denies sore throat. (08:03 LLDO) CARDIOVASCULAR: Historian reports dyspnea on exertion. (08:00 LLDO) RESPIRATORY: Historian reports cough. (08:00 LLDO) MUSCULOSKELETAL: Historian reports fall, reports injury, reports myalgias. ONLY IN HPI. (08:00 LLDO) SKIN: Negative skin review of systems, Historian denies cellulitis, denies rash, denies skin changes, denies skin lesions. (08:03 LLDO) NEUROLOGIC: Negative neurologic review of systems, Historian denies confusion, denies dizziness, denies focal weakness, denies mental status changes. (08:03 LLDO) HEMO/LYMPHATIC: Normal hematologic/lymphatic system review, Historian denies abnormal blood clotting, denies gum bleeding, denies petechiae. (08:03 LLDO) ALLERGIC/IMMUNOLOGIC: Normal allergy/immunologic system review, &a-1R&a+25V*p+0X*g9513P*c202B*c15G*c2P*p-0X&a-25V&a+1R Name: Kristie Moreno : 1955 F60 MedRec: [id number] AcctNum: [id number] Prepared: Saroj Jun 11, 2016 09:25 by Interface Page 4 of 7 pMD [facility] EMERGENCY RECORD Historian denies eczema, denies environmental allergies, denies food allergies. (08:03 LLDO) PSYCHIATRIC: Negative psychiatric review of systems, Historian denies alcohol abuse, denies anxiety, denies depression, denies drug abuse, denies hallucinations. (08:03 LLDO) NOTES: All systems reviewed, negative except as described above. (08:00 LLDO) PAST MEDICAL HISTORY MEDICAL HISTORY: reflux, asthma, emphysema, gall stones. (07:25 SFRE) FEMALE SURGICAL HISTORY: Surgical history of cholecystectomy, Date of surgery 05/16/16, left wrist. (07:25 SFRE) PSYCHIATRIC HISTORY: anxiety. (07:25 SFRE) SOCIAL HISTORY: Lives at home, with family, Patient denies alcohol use, Patient denies drug use, Patient is a former tobacco user, smoked cigarettes, Patient quit smoking less than 10 years ago. (07:25 SFRE) FAMILY HISTORY: Family istory is not significant. (07:25 SFRE) NOTES: Nursing records reviewed, Agree with nursing records, Medication list reviewed. (08:02 LLDO) PHYSICAL EXAM CONSTITUTIONAL: Vital Signs Reviewed, Patient afebrile, Pulse normal, Blood pressure normal bilaterally, Respiratory rate normal, Patient appears non toxic, Patient appears, in moderate pain distress, BUT SEVERE WITH MOVEMENT OR PALPATION, Patient alert and oriented to person, place and time, Nursing notes reviewed. (08:01 LLDO) HEAD: Head exam normal, Head exam included findings of head atraumatic, normocephalic. (08:03 LLDO) EYES: Eye exam normal, Eye exam included findings of eyelids normal to inspection, Pupils equally round and reactive to light, Extraocular muscles intact. (08:03 LLDO) ENT: ENT exam normal, Ear exam normal, Nose exam normal. (08:03 LLDO) NECK: Neck exam normal, Neck exam included findings of normal range of motion, Trachea midline, no meningeal signs, no tenderness. (08:03 LLDO) RESPIRATORY CHEST: Respiratory exam included findings of no respiratory distress, Breath sounds clear, Chest exam included findings of chest movement symmetrical, Chest expansion equal, Tenderness, severe, to the left lateral chest, Palpation of chest reproduces symptoms. (08:01 LLDO) CARDIOVASCULAR: Heart rate regular rate and rhythm, Heart sounds normal, Patient age considered in evaluation. (08:01 LLDO) BACK: Back exam normal, Back exam included findings of normal &a-1R&a+25V*p+0X*i7594P*c202B*c15G*c2P*p-0X&a-25V&a+1R Name: Kristie Moreno : 1955 F60 MedRec: [id number] AcctNum: [id number] Prepared: FriJun 11, 2016 09:25 by Interface Page 5 of 7 pMD [facility] EMERGENCY RECORD inspection, range of motion normal. (08:03 LLDO) UPPER EXTREMITY: Upper extremity exam normal, Upper extremity exam included findings of inspection normal, Range of motion normal. (08:03 LLDO) LOWER EXTREMITY: Lower extremity exam normal, Lower extremity exam included findings of inspection normal, Range of motion normal. (08:03 LLDO) NEURO: Neuro exam normal, Neuro exam findings include patient oriented to person, place and time, Speech normal, Jose coma scale 15. (08:03 LLDO) SKIN: Skin exam normal, Skin exam included findings of skin warm, dry, and normal in color, no rash. (08:03 LLDO) PSYCHIATRIC: Psychiatric exam normal, Psychiatric exam included findings of patient oriented to person place and time, Normal affect. (08:03 LLDO) EVENTS TRANSFER: Triage to Emergency Main ED -05. (FriJun 11, 2016 07:24 SFRE) Removed from Emergency Main ED -05. (09:13 SFRE) RADIOLOGYINTERPRETATION (08:36 LLDO) SEWING MACHINE TESTER: Preliminary review of x-rays by, ED Physician, Radiologist, resolving pneumonia in right lung base. the radiologist reported no left rib fx, but I'm pretty sure there is ond, non-displaced fx in post-lat rib 8. PROBLEM LIST No recorded problems DIAGNOSIS (08:40 LLDO) FINAL: PRIMARY: FX 1 RIB UNS SIDE INITIAL CLOS FX, ADDITIONAL: pneumonia, resolving. DISPOSITION PATIENT: Disposition Type: Discharge, Disposition: *Discharge Home. (08:40 LLDO) Patient left the department. (09:13 SFRE) INSTRUCTION (08:42 LLDO) DISCHARGE: FRACTURE, RIB. FOLLOWUP: Follow up with Primary Care Physician in 10-14 days. SPECIAL: Expect constipation from pain medication and take daily Miralax. Follow-up with your PCP. PRESCRIPTION Tylenol-Codeine #3: TABLET : 300 mg-30 mg : ORAL : Quantity: 1-2 Unit: tab(s) Route: ORAL Schedule: every 4 hours prn Dispense: 30 Unit: tab(s) &a-1R&a+25V*p+0X*k8882X*c202B*c15G*c2P*p-0X&a-25V&a+1R Name: Kristie Moreno : 1955 F60 MedRec: [id number] AcctNum: [id number] Prepared: Saroj Jun 11, 2016 09:25 by Interface Page 6 of 7 pMD [facility] EMERGENCY RECORD May substitute. Refills: No Refills . (08:40 LLDO) NOTES: No Refills. (08:40 LLDO) Phenergan DM: SYRUP : : ORAL : Quantity: 1-2 Unit: teaspoon Route: ORAL Schedule: every 4 hours prn Dispense: 180 Unit: mL May substitute. Refills: No Refills . (08:47 LLDO) NOTES: No Refills. (08:47 LLDO) IMAGING (08:57 SFRE) *DISCHARGE INSTRUCTIONS RECEIPT: Image captured from scanner. *SUPPLY CHARGE SHEET: Image captured from scanner. ADMIN (08:49 LLDO) DIGITAL SIGNATURE: MD Caesar, Timbo. MD Caesar, Timbo. MD Maynard Lloyd. MD Maynard Lloyd. MD Maynard Lloyd. MD Maynard Lloyd. MD Maynard Lloyd. MD Maynard Lloyd. MD Maynard Lloyd. MD Maynard Lloyd. MD Maynard Lloyd. Negron: WESTON=MD Caesar, Timbo SFRE=ALDA Mederos, Nereyda &a-1R&a+25V*p+0X*a9690Q*c202B*c15G*c2P*p-0X&a-25V&a+1R Name: Kristie Moreno : 1955 F60 MedRec: [id number] AcctNum: [id number] Prepared: FriJun 11, 2016 09:25 by Interface Page 7 of 7 pMD [facility] MEDICATION RECONCILIATION You were seen in the Emergency Department on: FriJun 11, 2016 KNOWN ALLERGIES No Known Allergies (Unconfirmed) No Known Drug Allergies MEDICATIONS GIVEN WHILE IN THE EMERGENCY DEPARTMENT Naprosyn (naproxen) - Dose: 500 milligram(s) : Oral HOME MEDICATIONS CONTINUE PRESCRIBED Advair Diskus : BLISTER, WITH INHALATION DEVICE : Strength - 500 mcg-50 mcg/Dose : INHALATION Continue as prescribed Patient had been taking: once a day. atorvastatin : TABLET : Strength - 20 mg : ORAL Continue as prescribed Patient had been taking: once a day. sertraline : TABLET : Strength - 100 mg : ORAL Continue as prescribed Patient had been taking: once a day. Ventolin HFA : HFA AEROSOL WITH ADAPTER (GRAM) : Strength - 90 mcg : INHALATION Continue as prescribed Patient had been taking: every 4 hours prn. Notes from the emergency department Reviewed with patient PRESCRIPTIONS (2) Printed (2) Tylenol-Codeine #3 : TABLET : 300 mg-30 mg : ORAL Quantity: 1-2, Unit: tab(s), Route: ORAL, Schedule: every 4 hours prn, Dispense: 30 Unit: tab(s) &a-1R&a+25V*p+0X*f9197Q*c202B*c15G*c2P*p-0X&a-25V&a+1R Name: Kristie Moreno : 1955 F60 MedRec: [id number] AcctNum: [id number] Prepared: FriJun 11, 2016 09:25 by Interface pMD [facility]
--- NOTE | 2016-06-11 09:28 | RAD ---
PA CHEST THREE VIEWS LEFT SIDED RIBS: Date: 06-11-16 History: Injury after trauma. Comparison: 05-16-16 FINDINGS: There is a nodular parenchymal density seen at the right lung base. Large area of opacity seen on t he prior exam. This may be related to an improving area of infiltrate. Follow up to complete resol ution is recommended to exclude underlying pulmonary nodule. Lungs are otherwise clear. There is n o pneumothorax or pleural effusion seen. Vascular calcification seen in the thoracic aorta. No fra cture is visualized. Specifically, no left sided rib fracture is seen. Vascular calcification seen in the thoracic aorta. IMPRESSION: 1. Nodular density seen at the right lung base, but the opacity at the right lung base has improved compared to study on 05-16-16. Findings may be related to improving area of pneumonitis, but follow up to complete resolution is recommended to exclude possibility of an underlying pulmonary nodule. 2. No left sided rib fracture is seen. POS: [facility]
== END 2016-06-11 08:57 | disposition home or self-care (01) ==
LOC: MADERS 07:17
DX: S22.32XA Fracture of one rib, left side, initial encounter for closed fracture (principal); J18.9 Pneumonia, unspecified organism; J45.909 Unspecified asthma, uncomplicated; K21.9 Gastro-esophageal reflux disease without esophagitis; Z87.891 Personal history of nicotine dependence; Z79.899 Other long term (current) drug therapy; W22.8XXA Striking against or struck by other objects, initial encounter
CPT/HCPCS: 99284

== ENCOUNTER 2016-07-23 08:23 | Emergency (ER) | payer OTHER, SELFPAY ==
[~2016-07-23 08:23] MED LIST: Sodium Chloride 0.9% 100 ML BAG ONE
[2016-07-23 09:11] LABS: #Basophils 0.1 thou/uL (0.0-0.2); #Eosinphils 0.5 thou/uL (0.0-0.7); #Lymphocytes 2.1 thou/uL (1.20-3.40); #Monocytes 0.7 thou/uL (0.11-0.59); #Neutrophils 7.9 thou/uL (1.40-6.50); %Basophils 0.7 % (0.0-1.0); %Eosinophils 4.8 % (0.0-10.0); %Lymphocytes 18.6 % (21.0-51.0); %Monocytes 6.2 % (0.0-10.0); %Neutrophils 69.7 % (42.0-75.0); Hemoglobin 12.2 g/dL (12.0-16.0); Mean Corpuscular HGB CONC 32.6 g/dL (32.0-36.0); Mean Corpuscular Hemoglobin 26.4 pg (27.0-31.0); Mean Corpuscular Volume 80.9 fl (81.0-99.0); Mean Platelet Volume 8.2 fL (7.4-10.4); Platelet Count 392 thou/uL (130-400); RBC Distribution Width 14.8 % (11.5-14.5); Red Blood Cell (RBC) Count 4.63 mill/uL (4.20-5.40); White Blood Cell (WBC) Count 11.3 thou/uL (4.8-10.8)
[2016-07-23 09:23] LABS: ALT (SGPT) 13 U/L (0-55); AST (SGOT) 13 U/L (5-34); Alkaline Phosphatase 106 U/L (40-150); Anion Gap 13 mmol/L (10-20); BUN (Urea Nitrogen) 8 mg/dL (9.8-20.1); Bilirubin, Total 0.5 mg/dL (0.2-1.2); Calc. Creatinine Clearance 0 mL/min (70-130); Calcium 9.2 mg/dL (7.8-10.44); Carbon Dioxide 24 mmol/L (22-29); Chloride 107 mmol/L (98-107); Estimated GFR-MDRD 69; Globulin 2.7 g/dL (2.4-3.5); Glucose 93 mg/dL (70-105); Potassium 3.9 mmol/L (3.5-5.1); Protein, Total 6.7 g/dL (6.0-8.3); Sodium 140 mmol/L (136-145)
--- NOTE | 2016-07-23 10:29 | CT ---
CTA OF THE CHEST WITH CONTRAST: Comparison: Chest x-ray 05-16-16 History: Cough. Technique: Multiple contiguous axial images were obtained in a CTA of the chest with contrast with pulmonary embolism protocol. 3D oblique formats and direct coronal reformats were performed. FINDINGS: The pulmonary arteries are well opacified without filling defects to suggest pulmonary emboli. The heart is normal in size without focal cardiac abnormality. No hilar or mediastinal lymphadenopathy are seen. There is a small hiatal hernia. There are multifocal areas of airspace opacity in the right upper and lower lobes. No left sided in filtrates are seen. No suspicious pulmonary masses are present. No pneumothorax or pleural effusio n are present. Mild degenerative changes are seen in the spine. The patient is status post cholecystectomy. The o ther visualized subdiaphragmatic structures are unremarkable. The chest wall soft tissues are unrem arkable. IMPRESSION: 1. Multifocal infiltrates in the right upper and lower lobes. 2. No evidence of pulmonary thromboembolism. POS: [facility]
[2016-07-23] MEDS ORDERED: Iopamidol 370 76% 125 ML VIAL FS ONE (10:33)
[2016-07-23] MEDS ORDERED: Piperacillin/Tazobactam 3.375 GM VIAL ONE (10:44)
[2016-07-23] MEDS ORDERED: Azithromycin 500 MG VIAL ONE (10:44)
[2016-07-23] MEDS ORDERED: HYDROcodone/Acetaminophen 5/325 mg Tablet ONE (10:44)
[2016-07-23] MEDS ORDERED: Dexamethasone 10 MG/ML VIAL ONE (10:44)
[2016-07-23] MEDS ORDERED: Albuterol Sulfate 1.25 MG/3 ML NEB ONE (11:19)
== END 2016-07-23 11:36 | disposition short-term general hospital (02) ==
LOC: MADERS 08:23
DX: J15.9 Unspecified bacterial pneumonia (principal); J45.909 Unspecified asthma, uncomplicated; F41.9 Anxiety disorder, unspecified; K21.9 Gastro-esophageal reflux disease without esophagitis; Z87.891 Personal history of nicotine dependence; Z79.899 Other long term (current) drug therapy
CPT/HCPCS: 36415; 71275; 80053; 85025; 85379; 93005; 96365; 96367; 96375; J0456; J1100; J2543; J7050

== ENCOUNTER 2017-02-10 08:58 | Emergency (ER) | payer OTHER, SELFPAY ==
[2017-02-10 09:37] LABS: #Basophils 0.2 thou/uL (0.0-0.2); #Eosinphils 0.5 thou/uL (0.0-0.7); #Lymphocytes 1.9 thou/uL (1.20-3.40); %Basophils 1.2 % (0.0-1.0); %Eosinophils 3.6 % (0.0-10.0); %Lymphocytes 13.1 % (21.0-51.0); %Monocytes 7.1 % (0.0-10.0); Hemoglobin 11.5 g/dL (12.0-16.0); Mean Corpuscular HGB CONC 31.9 g/dL (32.0-36.0); Mean Corpuscular Hemoglobin 25.1 pg (27.0-31.0); Mean Corpuscular Volume 78.9 fl (81.0-99.0); Mean Platelet Volume 8.4 fL (7.4-10.4); Platelet Count 351 thou/uL (130-400); RBC Distribution Width 14.7 % (11.5-14.5); Red Blood Cell (RBC) Count 4.58 mill/uL (4.20-5.40); White Blood Cell (WBC) Count 14.7 thou/uL (4.8-10.8)
[2017-02-10] MEDS ORDERED: Benzonatate 100 MG CAP ONE (09:40)
[2017-02-10] MEDS ORDERED: Dexamethasone 10 MG/ML VIAL ONE (09:40)
[2017-02-10] MEDS ORDERED: Ketorolac Tromethamine 30 MG/ML VIAL ONE (09:40)
[2017-02-10] MEDS ORDERED: methylPREDNISolone Sod Succ/PF 125 MG/2 ML VIAL ONE (09:41)
[2017-02-10] MEDS ORDERED: cefTRIAXone\\ROCEPHIN 1 GM VIAL ONE ×2 (09:41→09:46)
[2017-02-10 09:57] LABS: ALT (SGPT) 12 U/L (8-55); AST (SGOT) 16 U/L (5-34); Albumin 3.8 g/dL (3.5-5.0); Alkaline Phosphatase 92 U/L (40-150); Anion Gap 14 mmol/L (10-20); BUN (Urea Nitrogen) 10 mg/dL (9.8-20.1); Bilirubin, Total 0.4 mg/dL (0.2-1.2); Calc. Creatinine Clearance 0 mL/min (70-130); Calcium 9.1 mg/dL (7.8-10.44); Carbon Dioxide 22 mmol/L (22-29); Chloride 105 mmol/L (98-107); Estimated GFR-MDRD 72; Globulin 2.9 g/dL (2.4-3.5); Glucose 101 mg/dL (70-105); Protein, Total 6.7 g/dL (6.0-8.3); Sodium 137 mmol/L (136-145)
--- NOTE | 2017-02-10 10:03 | RAD ---
CHEST TWO VIEWS: HISTORY: Dyspnea. COMPARISON: 07/26/2016 FINDINGS: The cardiac silhouette and pulmonary vasculature are unremarkable. The mediastinum is midline. The lungs remain hyperinflated. Atelectasis at the posterior costophrenic angles is more apparent than on the prior study. Areas of nodular infiltrate over the right upper and lower lobes on the previo us study are less pronounced. No lobar consolidation, pleural fluid, or pneumothorax is apparent. IMPRESSION: Chronic obstructive pulmonary disease. POS: [facility]
== END 2017-02-10 10:35 | disposition home or self-care (01) ==
LOC: MADERS 08:58
DX: J44.1 Chronic obstructive pulmonary disease with (acute) exacerbation (principal); K21.9 Gastro-esophageal reflux disease without esophagitis; J18.9 Pneumonia, unspecified organism; F17.210 Nicotine dependence, cigarettes, uncomplicated
CPT/HCPCS: 71020; 80053; 83880; 85025; 94640; 96365; 96375; J0696; J1100; J1885; J2930; J7050; J7620

== ENCOUNTER 2019-07-09 12:06 | Outpatient (CLI) | payer BC ==
--- NOTE | 2019-07-09 12:36 | RAD ---
2 views of the chest: 07/09/2019 COMPARISON: 02/10/2017 HISTORY: COPD exacerbation FINDINGS: There is increased linear interstitial density with pulmonary hyperinflation, consistent wi th the provided history of COPD. Old left-sided rib fractures are suspected. No pneumothorax or pleural fluid is seen and there is no lobar consolidation or alveolar edema. There is subtle asymmetric increased linear density in the left base, more conspicuous than on the pr ior exam. IMPRESSION: Interstitial prominence and pulmonary hyperinflation consistent with the provided history of COPD. Superimposed increased linear density in the left lung base may signify infectious pneumonitis. Short-term follow-up PA and lateral imaging of the chest following treatment is advised.
[2019-07-09 13:03] LABS: Hemoglobin 12.7 g/dL (12.0-16.0); Mean Corpuscular HGB CONC 30.6 g/dL (32.0-36.0); Mean Corpuscular Hemoglobin 26.9 pg (27.0-31.0); Mean Platelet Volume 6.4 fL (7.4-10.4); Platelet Count 611 thou/uL (130-400); RBC Distribution Width 13.4 % (11.5-14.5); White Blood Cell (WBC) Count 25.3 thou/uL (4.8-10.8)
[2019-07-09 13:12] LABS: Anisocytosis SLIGHT = 6-15 cells (100X) (0-5/hpf); Band 1 % (5-11); Lymphocytes 7 % (21-51); MDiff Complete? YES; Manual Diff?? YES; Monocytes 9 % (0-10); Neutrophil 83 % (42-75); Platelet Morphology Comment Appears Increased
[2019-07-09 13:29] LABS: ALT (SGPT) 9 U/L (8-55); AST (SGOT) 13 U/L (5-34); Alkaline Phosphatase 86 U/L (40-110); Anion Gap 16 mmol/L (10-20); BUN (Urea Nitrogen) 11 mg/dL (9.8-20.1); Calc. Creatinine Clearance 0 mL/min (70-130); Calcium 9.7 mg/dL (7.8-10.44); Carbon Dioxide 25 mmol/L (23-31); Chloride 105 mmol/L (98-107); Estimated GFR-MDRD 74; Globulin 3.6 g/dL (2.4-3.5); Glucose 96 mg/dL (80-115); Potassium 4.5 mmol/L (3.5-5.1); Protein, Total 7.6 g/dL (6.0-8.3); Sodium 141 mmol/L (136-145)
[2019-07-09 13:58] LABS: Bilirubin, Total 0.3 mg/dL (0.2-1.2)
== END 2019-07-09 12:07 | disposition home or self-care (01) ==
LOC: MADLAB 12:06
PROVIDERS: ATTEND Family Medicine
DX: J44.1 Chronic obstructive pulmonary disease with (acute) exacerbation (principal); R91.8 Other nonspecific abnormal finding of lung field; J98.4 Other disorders of lung
CPT/HCPCS: 36415; 71046; 80053; 85025

== ENCOUNTER 2019-07-16 11:38 | Outpatient (CLI) | payer BC ==
[2019-07-16 12:02] LABS: #Basophils 0.1 thou/uL (0.0-0.2); #Eosinphils 0.3 thou/uL (0.0-0.7); #Lymphocytes 1.8 thou/uL (1.20-3.40); #Monocytes 0.5 thou/uL (0.11-0.59); #Neutrophils 8.4 thou/uL (1.40-6.50); %Basophils 1.1 % (0.0-1.0); %Eosinophils 3.1 % (0.0-10.0); %Lymphocytes 16.1 % (21.0-51.0); %Monocytes 4.8 % (0.0-10.0); %Neutrophils 74.9 % (42.0-75.0); Hemoglobin 12.9 g/dL (12.0-16.0); Mean Corpuscular HGB CONC 31.6 g/dL (32.0-36.0); Mean Corpuscular Hemoglobin 27.1 pg (27.0-31.0); Mean Corpuscular Volume 85.9 fL (78.0-98.0); Mean Platelet Volume 6.4 fL (7.4-10.4); Platelet Count 813 thou/uL (130-400); RBC Distribution Width 13.1 % (11.5-14.5); Red Blood Cell (RBC) Count 4.76 mill/uL (4.20-5.40); White Blood Cell (WBC) Count 11.2 thou/uL (4.8-10.8)
[2019-07-16] MEDS ORDERED: Iopamidol 370 76% 100 ML VIAL ONE (12:58)
--- NOTE | 2019-07-16 13:24 | CT ---
CT chest with IV contrast HISTORY: Cough. Abnormal chest radiograph. Infiltrate. COMPARISON: Radiograph 07/01/2019. CT 07/23/2016. FINDINGS: Lungs remain hyperinflated with scattered areas of bullae and interstitial scarring. There is subtle ill-defined groundglass infiltrate projects over the left posterior and anterior lung base, and throughout the left upper lobe. A 0.3 cm nodule within the medial segment right middle lobe is stable. No pleural fluid or pneumothorax. No enlarged lymph nodes evident within the mediastinum. Mild calcification in the arterial structures . Degenerative changes thoracic spine. Old healed and ununited left rib fractures. IMPRESSION: Mild multifocal left lung pneumonitis, accounting for density on recent chest radiograph. The patient has had similar appearance of multifocal pneumonitis on previous exams, including CT from 2017. Cause for recurrent mild multifocal groundglass inflammation is not evident. Consider infe ction versus inhalational disease versus autoimmune process.
== END 2019-07-16 11:39 | disposition home or self-care (01) ==
LOC: MADLAB 11:38
PROVIDERS: ATTEND Family Medicine
DX: J15.9 Unspecified bacterial pneumonia (principal); R62.7 Adult failure to thrive; D47.3 Essential (hemorrhagic) thrombocythemia
CPT/HCPCS: 36415; 71260; 82565; 85025; Q9967

== ENCOUNTER 2019-10-11 09:23 | Outpatient (CLI) | payer BC ==
--- NOTE | 2019-10-11 10:03 | ULT ---
EXAM: US Soft Tissue Other PROVIDED CLINICAL HISTORY: Swelling right side of neck for months. COMPARISON: None FINDINGS: No discrete mass or fluid collection is seen in the right aspect of the neck in region of patient's p alpable abnormality. No enlarged lymph node is appreciated on this exam. IMPRESSION: No sonographic abnormality is seen in the region of the patient's palpable abnormality right neck. CT scan neck with IV contrast would be helpful for further evaluation.
== END 2019-10-11 09:24 | disposition home or self-care (01) ==
LOC: MADULT 09:23
PROVIDERS: ATTEND Family Medicine
DX: R22.1 Localized swelling, mass and lump, neck (principal)
CPT/HCPCS: 76999

== ENCOUNTER 2019-10-28 09:56 | Outpatient (CLI) | payer BC ==
[2019-10-28] MEDS ORDERED: Iopamidol 370 76% 100 ML VIAL IV ONE (09:57)
--- NOTE | 2019-10-28 13:17 | CT ---
CT NECK WITH CONTRAST: 10/28/19 INDICATIONS: Right sided neck mass. Technologist states that the palpable area of concern is just below the right ear. A marker was not p laced on the skin. FINDINGS: Parotid glands appear unremarkable. The submandibular glands appear unremarkable. Thyroid is mildly heterogeneous. There are small low density foci in both lobes suggesting small low density nodules. Consider evaluation with thyroid ultrasound. Nasopharynx unremarkable. The base of tongue and oropharynx appears unremarkable. Hypopharynx and larynx unremarkable. Director Dermatology space, parapharyngeal space, and retropharyngeal space unremarkable. Carotid space unremar kable with mild atherosclerotic calcifications in the carotid bulbs. In the midline anteriorly, there is a bilobed cystic mass anterior and inferior to the hyoid bone wit h projection posterior to the hyoid bone. 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 It m easures a total width of approximately 3.0 cm in the axial plane x approximately 8 mm AP dimension in the axial plane. Review of the lymph node levels show no significant level I submandibular nodes. There are small nonspecific level II nodes at the jugulodigastric regions. There are small nonspecifi c subcentimeter lymph nodes seen in the right neck posterior and inferior to the submandibular gland and parotid glands. These may be palpable but are not pathologic. No evidence of level IV or level V adenopathy. The cervical spine appears unremarkable. The visualized paranasal sinuses appear clear. IMPRESSION: 1. Nonspecific small lymph nodes in the subcutaneous region on the right inferior to the right p arotid gland may correspond to palpable abnormalities. No evidence of pathologic mass identified in t he right neck. 2. 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 3. The thyroid is mildly heterogeneous as noted above. POS: [facility]
== END 2019-10-28 09:57 | disposition home or self-care (01) ==
LOC: MADCT 09:56
PROVIDERS: ATTEND Family Medicine
DX: R22.1 Localized swelling, mass and lump, neck (principal); E04.1 Nontoxic single thyroid nodule
CPT/HCPCS: 36415; 70491; 82565; Q9967

== ENCOUNTER 2020-03-25 18:50 | Emergency (ER) | payer BC ==
[2020-03-25] MEDS ORDERED: Bupivacaine HCl 0.5%/Epinephrine 1:200,000/PF 30 ml Vial ONE (20:03)
[2020-03-25] MEDS ORDERED: Clindamycin 300 MG/2 ML VIAL ONE ×2 (20:40)
== END 2020-03-25 21:17 | disposition home or self-care (01) ==
LOC: MADERS 18:50
DX: K04.7 Periapical abscess without sinus (principal); L03.211 Cellulitis of face; K21.9 Gastro-esophageal reflux disease without esophagitis; J43.9 Emphysema, unspecified; M19.90 Unspecified osteoarthritis, unspecified site; F41.9 Anxiety disorder, unspecified; F17.210 Nicotine dependence, cigarettes, uncomplicated; Z79.899 Other long term (current) drug therapy
CPT/HCPCS: 64400; 96372; J3490

== ENCOUNTER 2020-09-27 09:31 | Emergency (ER) | payer BC ==
[2020-09-27] MEDS ORDERED: Morphine 4 MG/ML VIAL ONE ×2 (10:22→11:47)
[2020-09-27 10:46] LABS: #Basophils 0.1 thou/uL (0.0-0.2); #Eosinphils 1.1 thou/uL (0.0-0.7); #Lymphocytes 1.8 thou/uL (1.20-3.40); #Monocytes 0.6 thou/uL (0.11-0.59); #Neutrophils 5.4 thou/uL (1.40-6.50); %Basophils 1.1 % (0.0-1.0); %Eosinophils 11.9 % (0.0-10.0); %Monocytes 7.2 % (0.0-10.0); %Neutrophils 59.9 % (42.0-75.0); Hemoglobin 14.6 g/dL (12.0-16.0); Mean Corpuscular HGB CONC 30.7 g/dL (32.0-36.0); Mean Corpuscular Hemoglobin 28.3 pg (27.0-31.0); Mean Corpuscular Volume 92.5 fL (78.0-98.0); Mean Platelet Volume 8.7 fL (7.4-10.4); Platelet Count 304 thou/uL (130-400); RBC Distribution Width 12.9 % (11.5-14.5); Red Blood Cell (RBC) Count 5.16 mill/uL (4.20-5.40); White Blood Cell (WBC) Count 8.9 thou/uL (4.8-10.8)
[2020-09-27 10:55] LABS: ALT (SGPT) 9 U/L (8-55); AST (SGOT) 13 U/L (5-34); Albumin 4.3 g/dL (3.4-4.8); Alkaline Phosphatase 86 U/L (40-110); Anion Gap 15 mmol/L (10-20); BUN (Urea Nitrogen) 8 mg/dL (9.8-20.1); Bilirubin, Total 0.4 mg/dL (0.2-1.2); CK (CPK) 70 U/L (29-168); Calc. Creatinine Clearance 0 mL/min (70-130); Calcium 9.3 mg/dL (7.8-10.44); Carbon Dioxide 26 mmol/L (23-31); Chloride 107 mmol/L (98-107); Glucose 86 mg/dL (80-115); Lipase 9 U/L (8-78); Potassium 4.4 mmol/L (3.5-5.1); Protein, Total 7.3 g/dL (5.8-8.1); Sodium 144 mmol/L (136-145)
[2020-09-27 11:26] LABS: Bilirubin Negative (Negative); Blood, Urine Trace (Negative); Clarity Clear (Clear); Glucose, Urine (Dipstick) Negative (Negative); Ketone, Urine Negative (Negative); Leukocyte Trace (Negative); Nitrite Positive (Negative); Protein, Urine (Dipstick) Negative (Neg-Trace); Specific Gravity, Urine 1.015 (1.005-1.030); Urobilinogen 0.2 mg/dL (Less than 2); pH, Urine 6.5 (5.0-9.0)
[2020-09-27 11:32] LABS: Bacteria/HPF 1+ HPF (None Seen); RBC/HPF 0-3 HPF (0-3); WBC/HPF 0-3 HPF (0-3)
[2020-09-27] MEDS ORDERED: Iopamidol 370 76% 125 ML VIAL FS ONE (13:38)
== END 2020-09-27 12:46 | disposition home or self-care (01) ==
LOC: MADERS 09:31
DX: S22.41XA Multiple fractures of ribs, right side, initial encounter for closed fracture (principal); K21.9 Gastro-esophageal reflux disease without esophagitis; J43.9 Emphysema, unspecified; J45.909 Unspecified asthma, uncomplicated; M19.90 Unspecified osteoarthritis, unspecified site; F17.210 Nicotine dependence, cigarettes, uncomplicated; Z87.01 Personal history of pneumonia (recurrent); Z79.899 Other long term (current) drug therapy; X58.XXXA Exposure to other specified factors, initial encounter
CPT/HCPCS: 71275; 74177; 80053; 81003; 81015; 82550; 83690; 84484; 85025; 87077; 87086; 87186; 93005; 94799; 96374; 96376; J2270; J3490; Q9967

== ENCOUNTER 2020-12-29 18:43 | Emergency (ER) | payer BC, SELFPAY ==
[2020-12-29] MEDS ORDERED: HYDROcodone/Acetaminophen 5/325 mg Tablet ONE (19:33)
== END 2020-12-29 19:41 | disposition home or self-care (01) ==
LOC: MADERS 18:43
DX: J43.9 Emphysema, unspecified (principal); M19.90 Unspecified osteoarthritis, unspecified site; M81.0 Age-related osteoporosis without current pathological fracture; F17.210 Nicotine dependence, cigarettes, uncomplicated; K21.9 Gastro-esophageal reflux disease without esophagitis; Z87.01 Personal history of pneumonia (recurrent); Z79.899 Other long term (current) drug therapy
CPT/HCPCS: 71046

== ENCOUNTER 2021-03-27 16:50 | Emergency (ER) | payer SELFPAY ==
[2021-03-27] MEDS ORDERED: Penicillin V Potassium 250 MG TAB ONE (18:19)
[2021-03-27] MEDS ORDERED: HYDROcodone/Acetaminophen 5/325 mg Tablet ONE (18:21)
== END 2021-03-27 18:24 | disposition home or self-care (01) ==
LOC: MADERS 16:50
DX: K04.7 Periapical abscess without sinus (principal); L03.211 Cellulitis of face; K21.9 Gastro-esophageal reflux disease without esophagitis; J44.9 Chronic obstructive pulmonary disease, unspecified; F17.210 Nicotine dependence, cigarettes, uncomplicated; Z79.899 Other long term (current) drug therapy
CPT/HCPCS: 99283

== ENCOUNTER 2022-07-19 09:48 | Outpatient (CLI) | payer MEDICARE | END 2022-07-19 09:49 | disposition home or self-care (01) | LOC: MADRAD 09:48 | PROVIDERS: ATTEND Internal Medicine | DX: J44.9 Chronic obstructive pulmonary disease, unspecified (principal) | CPT/HCPCS: 71046 ==

== ENCOUNTER 2022-12-03 11:35 | Emergency (ER) | payer MEDICARE | END 2022-12-03 14:44 | disposition home or self-care (01) | LOC: MADERS 11:35 | DX: S22.41XA Multiple fractures of ribs, right side, initial encounter for closed fracture (principal); J44.9 Chronic obstructive pulmonary disease, unspecified; M80.0AXA Age-related osteoporosis with current pathological fracture, other site, initial encounter for fracture; F17.210 Nicotine dependence, cigarettes, uncomplicated; X50.1XXA Overexertion from prolonged static or awkward postures, initial encounter | CPT/HCPCS: 71250 ==

== ENCOUNTER 2023-10-21 08:39 | Emergency (ER) | payer MEDICARE ==
[2023-10-21] MEDS ORDERED: Iopamidol 370 76% 100 ML VIAL ONE (09:00)
[2023-10-21 10:37] LABS: INR-International Normal Ratio 0.9; Prothrombin Time 12.3 sec (12.0-14.7)
[2023-10-21 10:38] LABS: PTT 23.9 sec (22.9-36.1)
[2023-10-21 10:43] LABS: Anion Gap 14 mmol/L (10-20); BUN (Urea Nitrogen) 17 mg/dL (9.8-20.1); Calc. Creatinine Clearance 0 mL/min (70-130); Carbon Dioxide 25 mmol/L (23-31); Chloride 106 mmol/L (98-107); Estimated GFR 77; Glucose 92 mg/dL (80-115); Potassium 4.1 mmol/L (3.5-5.1); Sodium 141 mmol/L (136-145)
[2023-10-21 10:46] LABS: Hematocrit 50.2 % (36.0-47.0); Hemoglobin 14.7 g/dL (12.0-16.0); Mean Corpuscular HGB CONC 29.2 g/dL (32.0-36.0); Mean Corpuscular Hemoglobin 27.2 pg (27.0-31.0); Mean Corpuscular Volume 92.8 fl (78.0-98.0); Mean Platelet Volume 8.8 fL (7.4-10.4); Platelet Count 244 10x3/uL (130-400); Red Blood Cell (RBC) Count 5.41 mill/uL (4.20-5.40); White Blood Cell (WBC) Count 19.2 10x3/uL (4.8-10.8)
[2023-10-21 10:49] LABS: Band 6 % (5-11); Lymphocytes 4 % (21-51); MDiff Complete? YES; Neutrophil 80 % (42-75)
[2023-10-21 10:50] LABS: Anisocytosis SLIGHT = 6-15 cells (100X) (0-5/hpf); Eosinophils 2 % (0-10); Monocytes 8 % (0-10); Platelet Adequacy Comment Appears Adequate
[2023-10-21 10:51] LABS: Troponin I Less than 0.010 ng/mL (< 0.028)
[2023-10-21] MEDS ORDERED: Boostrix 0.5 ML (Tdap) VIAL (>/=7 yrs of age) ONE (10:52)
[2023-10-21] MEDS ORDERED: cefTRIAXone (ROCEPHIN) 1 GM VIAL ONE (11:10)
[2023-10-21] MEDS ORDERED: Morphine 4 MG/ML VIAL ONE ×2 (11:10→15:32)
[2023-10-21] MEDS ORDERED: Sodium Chloride 0.9% 100 ML ONE (11:10)
[2023-10-21] MEDS ORDERED: Ondansetron PF 4 MG/2 ML Vial ONE ×2 (11:10→15:32)
[2023-10-21 15:04] LABS: Bilirubin Negative (Negative); Blood, Urine Negative (Negative); Glucose, Urine (Dipstick) Negative (Negative); Ketone, Urine Negative (Negative); Leukocyte Trace (Negative); Nitrite Positive (Negative); Protein, Urine (Dipstick) 30 mg/dL (Neg-Trace)
[2023-10-21 15:07] LABS: Bacteria/HPF 2+ HPF (None Seen); CAUTI Indications for Culture Dysuria,urgency,freq; Clarity Hazy (Clear); RBC/HPF 0-3 HPF (0-3); Squamous Epithelial 0-3 HPF (0-3)
[2023-10-21 15:08] LABS: Urine Culture Reflex No No
== END 2023-10-21 15:59 | disposition short-term general hospital (02) ==
LOC: MADERS 08:39
DX: S22.42XA Multiple fractures of ribs, left side, initial encounter for closed fracture (principal); S42.444A Nondisplaced fracture (avulsion) of medial epicondyle of right humerus, initial encounter for closed fracture; J18.9 Pneumonia, unspecified organism; N39.0 Urinary tract infection, site not specified; F17.210 Nicotine dependence, cigarettes, uncomplicated; J44.9 Chronic obstructive pulmonary disease, unspecified; Z79.899 Other long term (current) drug therapy; W10.9XXA Fall (on) (from) unspecified stairs and steps, initial encounter
CPT/HCPCS: 71101; 71260; 73030; 73060 ×2; 73080 ×2; 73090 ×2; 73110; 73130; 74177; 80048; 81001; 84484; 85025; 85610; 85730; 86850; 86900; 86901; 90471; 90715; 93005; 96374; 96375; 96376; 99285; J0696; J2270; J2405; J3490; Q9967